=== PATIENT | male | born 1935 | race Caucasian/White ===

== ENCOUNTER → 2024-04-13 10:19 | Outpatient (REF) | payer OTHER, SELFPAY | LOC: RAD 10:19 | PROVIDERS: ATTENDING PHYSICIAN Internal Medicine Hematology & Oncology; FAMILY PHYSICIAN Family Medicine | DX: C61 Malignant neoplasm of prostate (principal); Z85.038 Personal history of other malignant neoplasm of large intestine; D64.81 Anemia due to antineoplastic chemotherapy | CPT/HCPCS: 71260; 74177; 78306; A9503; Q9967 ==

== ENCOUNTER → 2024-10-07 13:08 | Outpatient (REF) | payer OTHER, SELFPAY ==
[2024-10-07 13:48] LABS: % Basophils 0.6 % (0-2); % Eosinophils 0.5 % (0-6); % Lymphocytes 10.8 % (20.5-51.1); % Monocytes 9.8 % (1.7-9.3); % Neutrophils 77.3 % (42.2-75.2); Absolute Basophils 0.1 10^3/uL (0-0.2); Absolute Eosinophils 0.1 10^3/uL (0-0.7); Absolute Immature Granulocytes 0.1 10^3/uL (0-0.05); Absolute Monocytes 0.9 10^3/uL (0.1-0.6); Absolute Neutrophils 7.3 10^3/uL (1.4-6.5); Hematocrit 35.4 % (39.0-52.0); Hemoglobin 11.2 g/dL (13.0-18.0); Mean Corp Hgb Conc. 31.6 g/dL (33.0-37.0); Mean Corpuscular Hgb 28.6 pg (27.0-31.0); Mean Corpuscular Volume 90.3 fL (80.0-94.0); Mean Platelet Volume 8.4 fL (7.4-10.4); Platelet Count 353 10^3/uL (130-400); Red Blood Cell Count 3.92 10^6/uL (4.70-6.10); Red Cell Dist. Width 16.5 % (11.5-14.5); White Blood Cell Count 9.5 10^3/uL (4.8-10.8)
[2024-10-07 15:19] LABS: ALT (SGPT) 30 U/L (0-50); AST (SGOT) 36 U/L (17-59); Albumin 3.3 g/dl (3.5-5.0); Alkaline Phosphatase 85 U/L (38-126); Blood Urea Nitrogen 14 mg/dl (9-20); Calcium 8.6 mg/dl (8.4-10.2); Carbon Dioxide 21 mmol/L (22-30); Chloride 105 mmol/L (98-107); Glucose 104 mg/dl (70-99); Potassium 4.2 mmol/L (3.5-5.1); Sodium 135 mmol/L (135-145); Total Bilirubin 0.3 mg/dl (0.2-1.3); Total Protein 6.3 g/dl (6.3-8.2); eGFR > 60.00
== END ==
LOC: OIDL 13:08
PROVIDERS: ATTENDING PHYSICIAN Internal Medicine Hematology & Oncology; FAMILY PHYSICIAN Family Medicine; REFERRING PHYSICIAN Family Medicine
DX: C61 Malignant neoplasm of prostate (principal); Z85.038 Personal history of other malignant neoplasm of large intestine
CPT/HCPCS: 36415; 80053; 85025

== ENCOUNTER → 2024-10-19 09:18 | Outpatient (REF) | payer OTHER, SELFPAY | LOC: RAD 09:18 | PROVIDERS: ATTENDING PHYSICIAN Internal Medicine Hematology & Oncology; FAMILY PHYSICIAN Family Medicine | DX: C61 Malignant neoplasm of prostate (principal); Z85.038 Personal history of other malignant neoplasm of large intestine; M79.604 Pain in right leg | CPT/HCPCS: 71260; 74177; 78306; A9503; Q9967 ==

== ENCOUNTER → 2025-01-20 09:22 | Outpatient (REF) | payer OTHER, SELFPAY | LOC: RAD 09:22 | PROVIDERS: ATTENDING PHYSICIAN Internal Medicine Hematology & Oncology; FAMILY PHYSICIAN Family Medicine; OTHER PHYSICIAN Nurse Practitioner Primary Care | DX: Z85.038 Personal history of other malignant neoplasm of large intestine (principal); C61 Malignant neoplasm of prostate; D64.81 Anemia due to antineoplastic chemotherapy; M79.604 Pain in right leg | CPT/HCPCS: 71260; 74177; 78306; A9503; Q9967 ==

== ENCOUNTER → 2025-05-18 09:01 | Outpatient (REF) | payer OTHER, SELFPAY | LOC: RAD 09:01 | PROVIDERS: ATTENDING PHYSICIAN Nurse Practitioner Primary Care; FAMILY PHYSICIAN Family Medicine | DX: C61 Malignant neoplasm of prostate (principal); Z85.038 Personal history of other malignant neoplasm of large intestine; D64.81 Anemia due to antineoplastic chemotherapy; M79.604 Pain in right leg | CPT/HCPCS: 71260; 74177; 78306; A9503; Q9967 ==

== ENCOUNTER 2025-08-09 01:27 | Inpatient (IN) | payer OTHER, SELFPAY ==
[2025-08-08 20:10] VITALS: BP 133/58
[2025-08-08] MEDS: TYLENOL 650 MG PO (20:25)
[2025-08-08 20:41] VITALS: BMI 18.2
[2025-08-08 20:41] LABS: COVID-19 Antigen Negative (Negative)
[2025-08-08 22:15] VITALS: BP 104/43
[2025-08-08 22:24] LABS: Hematocrit 24.7 % (39.0-52.0); Hemoglobin 8.3 g/dL (13.0-18.0); Mean Corp Hgb Conc. 33.6 g/dL (33.0-37.0); Mean Corpuscular Volume 87.6 fL (80.0-94.0); Platelet Count 229 10^3/uL (130-400); Red Cell Dist. Width 15.9 % (11.5-14.5)
[2025-08-08 22:32] LABS: ALT (SGPT) 21 U/L (0-50); AST (SGOT) 33 U/L (17-59); Albumin 2.7 g/dl (3.5-5.0); Alkaline Phosphatase 77 U/L (38-126); Blood Urea Nitrogen 19 mg/dl (9-20); Calcium 8.5 mg/dl (8.4-10.2); Carbon Dioxide 24 mmol/L (22-30); Chloride 104 mmol/L (98-107); Estimated Creatinine Clearance 71 ml/min; Glucose 122 mg/dl (70-99); Potassium 4.0 mmol/L (3.5-5.1); Sodium 130 mmol/L (135-145); Total Protein 5.6 g/dl (6.3-8.2); eGFR > 60.00
[2025-08-08 22:40] LABS: Normal RBC Morphology No; Platelets Checked Yes
[2025-08-08 22:41] LABS: Anisocytosis 1+; Macrocytosis 1+
[2025-08-08 22:43] LABS: Hypochromasia 1+
[2025-08-08 22:44] LABS: Basophilic Stippling 1+; Microcytosis 1+
[2025-08-08 22:47] LABS: Absolute Neutrophils -Man Diff 0.7 10^3/uL (1.4-6.5); Polychromasia 1+; Total Cells Counted 100
[2025-08-08 23:00] VITALS: BP 102/42
[2025-08-09] VITALS (7 sets, daily range): BP systolic 95–122; BP diastolic 39–80; BMI 18.0
[2025-08-09] MEDS: ZOSYN 100 IV (00:41)
[2025-08-09] MEDS: TYLENOL 650 MG PO ×2 (00:41→19:46)
[2025-08-09 00:44] LABS: Urine Character Clear (Clear)
[2025-08-09 00:50] LABS: Urine Squamous Cell 0-2 /LPF (Few); Urine White Cell 16-20 /HPF (0-5)
--- NOTE | 2025-08-09 00:50 | HPS.HSE ---
Family Physician
-
Family Physician: NOT KNOW UNKNOWN - PT DOES
Chief Complaint
-
Fever
History of Present Illness
This is a 89-year-old with past medical history significant for colon cancer, metastatic prostate cancer, hypertension who presents to the emergency department with left leg pain and was found to be febrile in the emergency department.
Patient receives docetaxel and Eligard. Last dose of testosterone was 10 days ago. Patient reported that he woke up in usual state of health. He reports chronic right leg weakness. He was able to ambulate with cane and walker throughout the day.
He was also able to seat and stand with assist. However at around 5 PM he reported he sat in his sofa and when he tried to get up he was unable to get up due to weakness in his right leg. He feels the weakness is not entirely. When he is but I
came in to get him up he had severe pain in that leg. He reported that the pain is localized to the thigh. He was sat down again, tried to get up and noticed the weakness again and then called EMS. He denies having any back pain. He denies
having any numbness or tingling. He denies having any urinary symptoms including incontinence, retention, dysuria or frequency. He did report that his urine was dark later on in the daytime. He denies any cough. He denies any shortness of
breath. He denies any headache lightheadedness or dizziness.
Patient reports history of prostate cancer with mets to the bone with prior radiation treatment to the hip.
He had a temp of 101.7 cooperative pressure was 104/40 with a pulse rate of 80 and he was satting 97% on room air. ECG showed sinus tachycardia with 4 degree AV block at a rate of 116.
He still 101.3 ANC less than 700. Hemoglobin was 8.3. Platelets 229. Sodium was 130 the rest of the electrolytes were normal. BUN and creatinine were normal. COVID test was negative. Influenza test was negative. UA is pending at this time.
Chest x-ray shows no acute infiltrates. X-ray of the leg without any fracture.
Medical History
Past Medical History
Past Medical History: Reports Cancer (Metastatic prostate cancer status post TURP 2021, colon cancer status post ileocolectomy in 2019) and HTN
Past Surgical History: Reports Bowel Resection (laparoscopic right colectomy, robotic ileocolectomy with resection of old anastomosis.) and Urological (TURP, )
Social History
Tobacco: Non-smoker
Alcohol: None
Drug: None
Personal: Single
Living: Alone
Family History
Family History: Not pertinent
Allergies / Home Medications
Allergies reflects when Allergies were last updated in [facility].
Home Medications with original date entered in [facility]
Allergy/Medication List:
Allergies
Allergy/AdvReac Type Severity Reaction Status Date / Time
No Known Allergies Allergy Verified 08/08/25 20:15
Home Medications
Xgeva 120 MG/1.7ML as directed Subcutaneous Active
DOCEtaxel 80 MG/8ML as directed Intravenous Active
Eligard 22.5 MG as directed Subcutaneous Active
predniSONE 5 MG 1 tablet Orally Twice a Day Active
Lisinopril 10 MG TAKE 1 TABLET DAILY for 90 Active
Review of Systems
-
Constitutional: Reports No Symptoms
EENT: Reports No Symptoms
Respiratory: Reports No Symptoms
Cardiac: Reports No Symptoms
Abdomen/GI: Reports No Symptoms
: Reports No Symptoms
Musculoskeletal: Reports No Symptoms
Skin: Reports No Symptoms
Neurological: Reports No Symptoms
Endocrine: Reports No Symptoms
Hematologic/Lymphatic: Reports No Symptoms
Psych: Reports No Symptoms
Physical Exam
Vital Signs
Vital Signs
Temp Pulse Resp BP Pulse Ox
99 F 88 18 104/43 97
08/09/25 00:39 08/08/25 22:45 08/08/25 21:45 08/08/25 22:15 08/08/25 22:45
Physical Exam
General: Well Developed, Well Nourished and No Apparent Distress
HEENT: NormoCephalic, Moist mucous membranes and Atraumatic
Respiratory: Clear
Cardiac: S1/S2 and Regular Rhythm; No Murmur or Rub
GI: Soft, Non Tender, Non Distended and Normal Bowel Sounds; No Organomegaly
Rectal: Deferred by Provider
Musculoskeletal: No Clubbing, No Cyanosis and No Edema
Skin: No Rash
Neuro: AO x 3, Cranial Nerves Intact, No Sensory Deficits and Other; No No Motor Deficits (He had weakness with a 3 out of 5 strength on R hip flexion and 2 out of 5 on R knee extension. Plantar strength was 5 out of 5 bilaterally. Reflexes
intact.)
Psych: Calm
Laboratory Results
-
08/08/25 21:53
08/08/25 21:53
Laboratory Results
Lactic Acid 1.3 mmol/L (0.7-2.0) 08/08/25 21:53
Total Bilirubin 0.4 mg/dl (0.2-1.3) 08/08/25 21:53
AST 33 U/L (17-59) 08/08/25 21:53
ALT 21 U/L (0-50) 08/08/25 21:53
Alkaline Phosphatase 77 U/L (38-126) 08/08/25 21:53
Data Reviewed
-
Diagnostic Radiology: Image Personally Visualized and interpreted
Medical Tests (Nuc Med, Echo, EKG etc): Image Personally Visualized and interpreted
Lab Data: Labs Reviewed by me
Old Records: Reviewed
Impression/Plan
-
IMPRESSION:
89-year-old male with past medical history significant for metastatic prostate cancer who presents to the emergency department with left leg pain and was found to be febrile. He has a ANC less than 700 criteria for neutropenic fever. On docetaxel.
The source of the fever is currently undetermined. Chest x-ray is clear. COVID flu is negative. UA still pending. Patient had no urinary symptoms. He is currently hemodynamically stable in no acute distress. However given unknown duration of
neutropenia patient will be admitted and started on empirically on antibiotics for neutropenic fever delineation of source.
PLAN:
Neutropenic fever - UTI as likley source. SIRS w/o sepsis
-Admit to [facility] [place]
-Blood cultures,
-UA positive, urine cultures pending
-IV cefepime 2g q 8 for now pending cultures
- ID consult
HTN - stable
- continue lisinopril with hold parameters
Leg weakness - Acute on chronic. Possibly exacerbated by infection. Mostly muscle weakness to the right proximal leg muscles. No other deficits. No signs of myelopathy or radiculopathy. Cannot rule out further spinal mets.
- leg xray unremarkable
- mri thoraci/lumbar spine
- treat infection as above
- pt consult
- case management
DVT PPX - lovenox sq
Code status - Full code for now, to discuss with family regarding advance directives
[2025-08-09] MEDS: VANCOCIN 530 MG IV (01:21)
--- NOTE | 2025-08-09 01:21 | ED.GENMED ---
History of Present Illness
General
Chief Complaint: Fever
Source: patient
Time Seen by Provider: 08/08/25 22:03
Nursing documentation reviewed up to this point in time: agreed with
History of Present Illness
History of Present Illness:
Note:
CHIEF COMPLAINT(S)
Inability to ambulate due to weakness in the right leg.
HISTORY OF PRESENT ILLNESS
The patient is an 89-year-old male with a history of bone cancer presenting with an acute inability to rise from a seated position due to weakness in the right leg. The patient reports a sudden onset of weakness making it impossible to stand or get
up from the sofa. He has a known history of bone cancer affecting his right leg and underwent radiation therapy on the right hip, though the exact timing of the radiation is unclear. There has been a progressive decline over the past months, with
the patient using a walker for mobility and requiring assistance to navigate stairs and get to the car. He lives alone but has assistance from his brother for transportation to medical appointments. The patient denies any current hip pain and
described intermittent past pain along the front and side of the right hip, especially when bearing weight. He also reports a fever earlier in the hospital but denies any chest pain, shortness of breath, abdominal pain, headache, or neck pain.
PAST MEDICAL AND SURGICAL HISTORY
The patient has a history of bone cancer affecting the right hip and has undergone radiation therapy. He has a powered port in the right chest for medical treatments. 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
youth.
EXTERNAL RECORDS REVIEWED
The patient is under the care of Dr. Gracia at [facility], who is managing his cancer treatment.
PHYSICAL EXAM
General: Alert, no acute distress. He is resting comfortably while lying in bed. He states that he has pain upon standing.
Skin: Warm, dry.
Head: Normocephalic, atraumatic.
Neck: Supple, trachea midline.
Eye, Ears, Nose, Mouth and Throat: Oral mucosa moist. 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
Cardiovascular: Heart regular in rhythm, normal peripheral perfusion, no edema. Port in the right chest
Respiratory: Lungs clear to auscultation, respirations non-labored.
Gastrointestinal: Abdomen nondistended.
Back: Normal range of motion, normal alignment.
Musculoskeletal: Right leg exhibits weakness, no tenderness to palpation.
Neurological: Alert and oriented to person, place, time, and situation, no focal neurological deficit observed.
Psychiatric: Cooperative, appropriate mood and affect.
PLAN
- An X-ray of the right hip to assess for changes potentially related to the patients bone cancer or any additional complications.
- Encouragement for the patient to urinate and collect a urine sample for analysis.
- Consideration of support for the patient as he cannot ambulate independently, involving discussions about discharge planning given his inability to return home alone safely.
DIFFERENTIAL DIAGNOSIS
The Differential Diagnosis includes, in no particular order and is not limited to:
1. Progression of bone cancer impacting the right leg.
2. Radiation-induced muscle weakness or damage.
3. Neurological deficit or injury.
4. Spinal stenosis or nerve impingement.
5. Muscle atrophy due to decreased use or inactivity.
6. Hip fracture or other orthopedic issue.
7. Myopathy related to oncology treatment.
8. Hypokalemia or electrolyte imbalance.
9. Vascular insufficiency in the right leg.
10. Acute infection or abscess in the bone or surrounding tissues.
CARE-UPDATE
08/08/25 - 22:31
WBC count is at 1.3. Hemoglobin remains at baseline of 8.3. Lactic acid is 1.3. Awaiting urine analysis results.
Disposition:
SUMMARY OF ENCOUNTER
The patient is an 89-year-old male presenting with inability to ambulate. He lives alone and was noted to have a fever. Clinically, he is experiencing a neutropenic fever. Management focused on addressing the fever and evaluating any underlying
causes contributing to his inability to move independently.
ASSESSMENT
The patient is presenting with neutropenic fever and inability to ambulate. The fever of unknown origin is of particular concern given his immunocompromised state.
PLAN
- Initiate antibiotic therapy to address the neutropenic fever.
- Evaluate the source of the fever and further assess his mobility issues.
- Consider hospital admission for further observation and management due to his immunocompromised status and living situation.
INDEPENDENT REVIEW OF LABS AND INTERPRETATION OF TESTS
My independent review indicates neutropenic fever, suggesting low white blood cell count consistent with a compromised immune state.
MEDICAL DECISION MAKING
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
Data:
Category 1
Non-emergency department records reviewed.
Category 2
Obtained input from external medical records.
Category 3
Discussion of management with other healthcare providers was considered.
Risk:
Prescription medication was prescribed.
DIAGNOSIS
1. Neutropenic fever - D70.9
2. Inability to ambulate due to generalized weakness - R53.1
Past History
Past History
ED Past Medical History: Cancer (colon, prostate), GERD, HTN and Other (Cataracts, macular degeneration, left eye blindness)
ED Past Surgical History: Bowel resection (colon ca)
Social History
Tobacco: Non-smoker
Alcohol: None
Drug: None
Personal: Single
Living: alone
Phy Exam
Physical Exam
Physical Exam:
.
Sepsis
Sepsis Screening
Sepsis Assessment: Sepsis
Sepsis Screen
Sepsis Screen: Sepsis
Date: 08/09/25
Time: 02:45
Course
Orders/Labs/Results
Orders:
Orders
08/08/25 20:15
Electrocardiogram (*1) Urgent
Reason for Study: Other
Other Reason for Exam: Possible Sepsis
Cardiac Monitoring- Treatment ONCE
IV Insert/Care/Rem.- Treatment PRN
Pulse Ox/cont/shift [RESP] Urgent
Quantity: 1
Special Instructions: CONTINUOUS
08/08/25 20:16
EKG- Treatment ONCE
08/08/25 20:18
COVID-19 Antigen Urgent
Source: Nasal Swab
Influenza A+B Rapid Molecular Urgent
RIVER Source: Nasal Swab
Specimen Description:
08/08/25 20:21
Acetaminophen [Tylenol] 650 mg PO NOW STA
08/08/25 20:22
Acetaminophen [Tylenol] 650 mg .ROUTE .STK-MED ONE
08/08/25 21:53
Complete Blood Count/With Diff Urgent
Comprehensive Metabolic Panel Urgent
Lactic Acid Q4H
Comment: ON ICE, CANCEL 2ND ORDER IF FIRST LACTIC ACID LEVEL <2
Manual Differential Urgent
08/08/25 22:21
Blood Culture Q20M
RIVER Source: Blood/Venous
Specimen Description:
Comment: Urgent from separate sites. If patient screens positive for possible sepsis
Blood Culture Q20M
RIVER Source: Blood/Venous
Specimen Description:
Date Specimen was Collected: 08/08/25
Time Specimen was Collected: 20:16
Comment: Urgent from separate sites. If patient screens positive for possible sepsis
08/08/25 22:31
Acetaminophen [Tylenol] 650 mg PO NOW STA
08/08/25 22:56
Urinalysis Reflex To Culture Urgent
Date Specimen was Collected: 08/08/25
Time Specimen was Collected: 20:16
08/08/25 23:05
Femur, Right 2 View [CR Femur - Right Min 2 Vw] Urgent
Comment:
Reason For Exam: pain, known bone ca
08/08/25 23:29
CR Chest - 2 Views Urgent
Comment:
Reason For Exam: neutropenic fever
08/09/25 00:20
Piperacillin/Tazo 4.5 Gram [Zosyn] 4.5 gram in 100 ml IV NOW
08/09/25 00:35
Urine Microscopic Reflex Cult Urgent
Urine Culture Urgent
RIVER Source: U
Specimen Description:
Date Specimen was Collected: 08/08/25
Time Specimen was Collected: 20:16
08/09/25 00:39
Vancomycin [Vancocin] 1,500 mg 0.9% Sodium Chloride 500 ml [Nss] 500 ml IV NOW
08/09/25 00:40
Acetaminophen [Tylenol] 650 mg .ROUTE .STK-MED ONE
08/09/25 00:58
Admit/Transfer Patient As Directed
Co-Sign Provider:
Level of Care: Inpatient admission
Assign to:: Medical/Surgical
Physician / Group: Toi
Diagnosis: neutropenic fever
Reason for Hospitalization: neutropenic fever
Expected length of stay greater than two midnights?: Yes
ELOS- Estimated Length of Stay in days: 2
I certify the patient meets the requirements for IP care: Yes
PRN Pain Medication Management As Directed
May give lesser potent ordered pain med per pt: Yes
preference::
Protocol:: Medication orders for pain may be administered in a
manner that supports deferring to patient preference
when the pt is:
- Requesting an ordered lesser potent pain medication.
Least to most potent pain medications are defined
as: acetaminophen < NSAID < tramadol < opioids
(morphine, oxycodone, hydromorphone).
- Requesting a lesser dose of the same medication IF
ORDERED.
- Requesting a less intrusive route of administration
if both routes are prescribed by the provider (PO <
IV).
08/09/25 00:59
Code Status As Directed
Resuscitation Status: Full Code
08/09/25 02:27
Acetaminophen [Tylenol] 650 mg PO Q4HPRN PRN
Bisacodyl [Dulcolax] 10 mg RECTAL [id number] PRN
Docusate W/Senna [Senokot-S] 1 tablet PO BIDPRN PRN
Hydrocodone 5/APAP 325 [[place] 5/325] 2 tablet PO Q6H PRN moderate pain moderate pain
Ondansetron Injectable [Zofran] 4 mg IV Q6HPRN PRN
Polyethylene Glycol Powder [Miralax] 17 grams PO DAILYPRN PRN
08/09/25 02:27
Consult Notification Routine
Specialty to Notify: Infectious Disease
INFECTIOUS DISEASE CONSULT Routine
Consulting Provider: Sindi Burgess
Was physician already notified: No
Reason for consult: neutropenic fever
Activity As Directed
Activity Level: With Assistance
Vital Signs As Directed
Frequency: Per unit guidelines
DX Deep Vein Thrombosis Video Routine
08/09/25 Breakfast
Regular
Basic Metabolic Panel IN AM
Complete Blood Count/No Diff IN AM
Cefepime HCl [Maxipime] 2,000 mg IV Q8H
08/09/25 08:00
Lisinopril [Zestril] 10 mg PO DAILY
Prednisone [Deltasone] 5 mg PO BID
08/09/25 18:00
Enoxaparin Sodium [Lovenox] 40 mg SC QPM
Abnormal Lab Results
08/08/25 08/09/25
21:53 00:35
WBC 1.3 L* 10^3/uL
(4.8-10.8)
RBC 2.82 L 10^6/uL
(4.70-6.10)
Hgb 8.3 L g/dL
(13.0-18.0)
Hct 24.7 L %
(39.0-52.0)
RDW 15.9 H %
(11.5-14.5)
Abs Neuts (Manual) 0.7 L* 10^3/uL
(1.4-6.5)
Lymphocytes (Manual) 18 L %
(20-51)
Monocytes (Manual) 20 H %
(2-9)
Sodium 130 L mmol/L
(135-145)
Creatinine 0.6 L mg/dL
(0.7-1.3)
Glucose 122 H mg/dl
(70-99)
Total Protein 5.6 L g/dl
(6.3-8.2)
Albumin 2.7 L g/dl
(3.5-5.0)
Ur Occult Blood Reflex 3+ A
(Negative)
Urine Nitrite (Reflex) Positive A
(Negative)
Leukocyte Esterase Rfl 1+ A
(Negative)
Urine RBC 7-10 A /HPF
(0-2)
Urine WBC (Reflex) 16-20 A /HPF
(0-5)
Urine Bacteria (Reflex) Many A
(Negative)
Urine Albumin (Reflex) 2+ A
(Neg - Trace)
08/08/25 21:53
08/08/25 21:53
Vital Signs
Initial and Last Documented VS:
Initial Vital Signs
Temp Pulse Resp BP Pulse Ox
101.2 F H 120 16 133/58 98
08/08/25 20:10 08/08/25 20:10 08/08/25 20:10 08/08/25 20:10 08/08/25 20:10
Last Documented Vital Signs
Temp Pulse Resp BP Pulse Ox
99 F 80 19 114/42 100
08/09/25 00:39 08/09/25 02:03 08/09/25 02:03 08/09/25 02:03 08/09/25 02:03
*Radiology
Radiology exam reviewed: all reviewed NAD by ED Provider
*Pulse Oximetry
SaO2: 97
Oxygen Mode of Delivery: Room air
Patient hypoxic: no
*Critical Care Note
Total Time (30-74mins, 75-104mins- exclusive of procedures): Not Applicable
ED Attending Note
-
Portions of this chart may have been created with voice recognition software.� Occasional wrong word or��sound alike� substitutions may have occurred due to the inherent limitations of voice recognition software.
Discharge Plan
Departure
Patient Disposition: Admit
Date of Disposition: 08/09/25
Time of Disposition: 01:22
Admit to: Telemetry
Presentation/result/management discussed w/ accepting MD/DO: Hospitalist
Discharge Problem:
Neutropenic fever, Ambulatory dysfunction
Interventions
Interventions:
*Risk Screen - Suicide Last Done: 08/08/25 20:10
*General Assessment Last Done: 08/08/25 20:10
*Neglect/Abuse Screening Last Done: 08/08/25 20:10
*ED- Fall Risk Assessment Last Done: 08/08/25 20:10
*ED COVID-19 Vaccine History Last Done: 08/09/25 01:44
*ED Influenza Vaccine History Last Done: 08/08/25 20:10
*Nursing Disposition Last Done: 08/09/25 02:17
ED- Neurological Assessment Last Done: 08/08/25 21:22
ED-Skin Assessment Last Done: 08/08/25 22:43
Discharge Date and Time
Discharge Date/Time: 08/09/25 02:18
--- NOTE | 2025-08-09 03:37 | PTCARENOTE ---
pt is aaox3. has right SQ port w/ iv abx running through. pt reports pain 4/10 at this time. declined pain med- stated she feels okay. pt reported he has bone cancer in the leg- normally feels it in the upper thigh and gets around w/ a RW. right
pedal weak w/ trace edema. left pedal/ankle +3 pitting edema and weak pedal pulse. pt is able to move leg a little. pt is blind in the left eye. is on static overlay. pt is oriented to room w/ call marx in reach.
[2025-08-09] MEDS: NSS 500 IV (04:50)
[2025-08-09] MEDS: MAXIPIME 2000 MG IV ×3 (05:02→21:31)
[2025-08-09] MEDS: STERILE WATER FOR INJECTION 10 ML IV ×3 (05:03→21:31)
[2025-08-09] MEDS: NORCO 5/325 2 TABLET PO (05:11)
[2025-08-09 07:10] LABS: Blood Urea Nitrogen 18 mg/dl (9-20); Calcium 8.2 mg/dl (8.4-10.2); Carbon Dioxide 22 mmol/L (22-30); Chloride 107 mmol/L (98-107); Estimated Creatinine Clearance 71 ml/min; Glucose 91 mg/dl (70-99); Potassium 4.0 mmol/L (3.5-5.1); Sodium 131 mmol/L (135-145); eGFR > 60.00
[2025-08-09] MEDS: DELTASONE 5 MG PO ×2 (07:51→19:42)
[2025-08-09] MEDS: ZESTRIL PO (07:51)
[2025-08-09 08:06] LABS: Hematocrit 25.3 % (39.0-52.0); Hemoglobin 8.4 g/dL (13.0-18.0); Mean Corp Hgb Conc. 33.2 g/dL (33.0-37.0); Mean Corpuscular Volume 88.8 fL (80.0-94.0); Platelet Count 226 10^3/uL (130-400); Red Cell Dist. Width 15.9 % (11.5-14.5)
--- NOTE | 2025-08-09 09:35 | CON.ID ---
Consultation
-
Date/Time Consultation Requested: 08/09/25 2:27
Date/Time Consultation Performed: 08/09/25 9:36
Requesting Provider: Dr Cm
Performing Provider: Dr Loomis
Reason for Consultation: neutropenic fever
Chief Complaint / Past History
Chief Complaint
fever
History of Present Illness
Mr Cruz is an 89 year old male with history notable for colon cancer, metastatic prostate cancer on docetaxel and eligard who presented here last night for weakness in the left leg with associated pain. He has chronic right leg weakness; at
baseline he can ambulate with a cane and sit and stand with assistance. The around 5 AM he sat on his sofa and when he tried to get up there was too much weakness in the leg. Provider was able to bring his to standing with assistance and notable
pain in the thigh. No back pain, numbness or tingeling. Denies headache, cough, sinus tenderness, shortness of breath, abdominal pain, dysuria, urgency, frequency.
He has knwon mets to the bone and previous radiation treatment of the hip.
On arrival he was febrile to 101.2, bp mildly hypotensive, WBC 1.3 and today 1.4, hgb 8.4, plt 226, na 130, cr 0.6, xray of the femur no acute osseous abnormality identified, metas to the bilateral pelvic bones are known, blood cultures x2 are in
progress a urine culture is in progress, he has thoracic and lumbar MRIs planned
Past History
Additional Past Medical History:
(Metastatic prostate cancer status post TURP 2021, colon cancer status post ileocolectomy in 2019) and HTN
Additional Past Surgical History:
Bowel Resection (laparoscopic right colectomy, robotic ileocolectomy with resection of old anastomosis.) and Urological (TURP, )
Allergy History:
No Known Allergies Allergy (Verified 08/08/25 20:15)
Social History
Tobacco: Non-Smoker
Alcohol: None
Drug: None
Family History
Family History: Not Pertinent
Review of Systems
Review of Systems
General: Fever
EENT: Reports No Symptoms
Respiratory: Reports No Symptoms
Cardiac: Reports No Symptoms
Abdomen/GI: Reports No Symptoms
: Reports No Symptoms
Musculoskeletal: Reports No Symptoms
Skin: Reports No Symptoms
Neurological: Reports No Symptoms
Endocrine: Reports No Symptoms
Hematologic/Lymphatic: Reports No Symptoms
Psych: Reports No Symptoms
Vital Signs
Temp Pulse Resp BP Pulse Ox
98.1 F 91 16 95/39 97
08/09/25 07:00 08/09/25 07:00 08/09/25 07:00 08/09/25 07:51 08/09/25 07:50
Physical Exam
Physical Exam
Constitutional: No Acute Distress
Cardiovascular: Regular Rate and S1/S2; Negative Murmur or Rub
Pulmonary: Clear and Symmetric; Negative Wheezes, Rales or Rhonchi
Gastrointestinal: Soft, Non Tender, Non Distended and Normal Bowel Sounds
Musculoskeletal: Other (right thigh no redness, swelling, tenderness )
Skin: Warm and Dry; Negative Rash or Jaundice
Lab / Diagnostic Study Results
08/09/25 06:32
08/09/25 06:32
Total Counted 100 08/08/25 21:53
Abs Neuts (Manual) 0.7 10^3/uL (1.4-6.5) L* 08/08/25 21:53
Segmented Neutrophils 58 % (42-75) 08/08/25 21:53
Band Neutrophils 0 % (0-3) 08/08/25 21:53
Lymphocytes (Manual) 18 % (20-51) L 08/08/25 21:53
Basophils (Manual) 2 % 08/08/25 21:53
Lactic Acid Cancelled 08/09/25 00:15
Ur Squamous Epith Cells 0-2 /LPF (Few) 08/09/25 00:35
Microbiology Results
Micro:
08/09/25 00:35 Urine Culture - Pending
Urine
08/08/25 22:21 Blood Culture - Pending
Blood/Venous
08/08/25 22:21 Blood Culture - Pending
Blood/Venous
08/08/25 20:18 Influenza Types A & B (SAYDA) - Final
Nasal Swab Negative for Influenza A & B, NAAT
Negative results must be combined with clinical observations
and patient history.
Nucleic Acid Amplification test (NAAT)performed on the
[employer] platform.
Assessment / Plan
Neutropenic Fever
Right thigh pain and weakness
- cefepime
- add vancomycin given possible skin/soft tissue infection
- CT of the right thigh
- will additionally follow up MRIs of lumbar/thoracic spine previously ordered
- oncology consult to assess need for GCSF
[2025-08-09 10:53] LABS: Urine Character Clear (Clear)
--- NOTE | 2025-08-09 10:57 | PHA.VAN.IN ---
Assessment
- Assessment
Renal Function: Appears similar to baseline
Maximum Temperature: 101.2F
Concomitant Antimicrobials: Cefepime
AUC Dosing Plan
- Dosing Variables
Dosing Weight (kg): 75.3- used IBW since BMI 18
Dosing CrCl (ml/min): 71
Vd coefficient (L/kg): 0.7
- Empiric Dosing
Initial / Loading Dose: Vancomycin 1500mg administered 08/09 at 0130
Maintenance Regimen: Vancomycin 750mg IV Q12h to start 08/09 at 1800
Estimated AUC (mcg*h/mL): 464
Estimated Peak (mcg*h/mL): 26.7
Estimated Trough (mcg/ml): 13.3
Estimated Half Life (H): 10.9
- Monitoring
No levels ordered at this time: Consider levels in the next few days.
Pharmacokinetics Vancomycin I
- -
Patient Age: 89
Patient Sex: Male
Vancomycin Day #: 1
Indication: Skin And Soft Tissue
Requesting Provider: Dr. Loomis
Height / Weight:
Height 5 ft 11 in
Actual Weight 58.57 kg
Pertinent Past Medical History: BMI 18, metastatic prostate cancer, colon cancer s/p colectomy '19
- Vital Signs / Lab Results
Temp Pulse Resp BP Pulse Ox
98.1 F 91 16 95/39 97
08/09/25 07:00 08/09/25 07:00 08/09/25 07:00 08/09/25 07:51 08/09/25 07:50
Lab Results - Hematology
08/08/25 08/09/25
21:53 06:32
WBC 1.3 L* 1.4 L*
Band Neutrophils 0
Lab Results - Chemistry
08/08/25 08/09/25
21:53 06:32
BUN 19 18
Creatinine 0.6 L 0.6 L
Estimated Creat Clear 71 71
Albumin 2.7 L
08/08/25 08/09/25
21:53 00:15
Lactic Acid 1.3 Cancelled
Lab Results - Urine
08/09/25
00:35
Urine Nitrite (Reflex) Positive A
Leukocyte Esterase Rfl 1+ A
Urine WBC (Reflex) 16-20 A
Ur Squamous Epith Cells 0-2
Urine Bacteria (Reflex) Many A
Microbiology Results
08/08/25 20:18 Influenza Types A & B (SAYDA) - Final
Nasal Swab Negative for Influenza A & B, NAAT
Negative results must be combined with clinical observations
and patient history.
Nucleic Acid Amplification test (NAAT)performed on the
[employer] NOW platform.
[2025-08-09 11:50] LABS: Urine Squamous Cell 0-2 /LPF (Few)
--- NOTE | 2025-08-09 11:50 | W.PN.UPDATE ---
Update Note
Progress Note Update
Seen and admitted this morning by Dr. Cm for neutropenic fever.
DW ID - planning on to get CT rt leg to rule out infectious process .
CW emp abx
Check urine Na and Osm for eval of hyponatremia.
Follow CBC with diff
Onc consulted
[2025-08-09 11:51] LABS: Urine Red Blood Cell 50-60 /HPF (0-2); Urine White Cell 30-40 /HPF (0-5)
--- NOTE | 2025-08-09 12:51 | CON.ONC ---
Impression
Impression
#Neutropenic fever, likely source of infection UTI/
#Leg weakness
#Hypertension- stable
Plan
Plan
- 89-year-old male with metastatic prostate cancer, on docetaxel and Eligard- last chemo 10 days ago- admitted for neutropenic fever (101.7 F, ANC 700) likely due to UTI given UA showing positive nitrites and 3+ leukocyte esterase.
- Continue IV Cefepime 2g q8h.
- Recommend respiratory panel and panculture as protocol for neutropenic fever.
- ANC 700. Trend CBC to monitor.
- Will consider adding G-CSF to future chemotherapy. No indication of G-CSF at this point in time, however, if ANC falls below 500, can consider while inpatient.
- Patient to follow up with Dr. Kelly at [facility] after discharge.
Patient History
History of Present Illness
Patient is an 89-year-old male with a past medical history of colon cancer, metastatic prostate cancer with prior radiation (Oct 2023) to right hip, and hypertension who presented with left leg pain. Patient states he could not get up from a
sitting position on the sofa due to left thigh pain, which prompted the ED visit. Patient was found to have a fever of 101.7 �, ANC 700 and UTI showing positive nitrates and leukocyte esterase. He denies urinary symptoms, rectal bleeding,
dark/tarry stools or any other complaints. Patient has been getting docetaxel (3 weekly) and Eligard (3 monthly)-last cycle was 10 days ago. He has been on chemotherapy since October 2023. He also gets Xgeva 6 weekly. Patient does not recall
getting G-CSF therapy in the past. He is currently on IV cefepime. Patient's Hgb is usually around 10.
Past-Medical/Surgical History
Metastatic prostate cancer status post TURP 2021
colon cancer status post ileocolectomy in 2019
Patient Medication
�Medication �Instructions �Recorded �Confirmed �Last Taken �Type
lisinopril 10 mg tablet 10 mg PO DAILY Blood pressure 01/30/18 08/09/25 08/08/25 08:00 History
multivitamin with folic acid 400 1 tab PO DAILY Supplement 04/04/22 08/09/25 08/08/25 History
mcg tablet (Tab-A-Elva)
calcium 600 mg (as 1 tab PO BID Supplement 05/30/22 08/09/25 08/08/25 08:00 History
carbonate)-vitamin D3 5 mcg (200
unit) tablet
degarelix 80 mg subcutaneous 80 mg SC QMONTH Cancer 05/30/22 08/09/25 05/07/22 History
solution
vit C 250 mg-vit E 90 mg-zinc 40 1 tab PO BID Supplement 05/30/22 08/09/25 08/08/25 08:00 History
mg-copper 1 [id number]
capsule (PreserVision AREDS-2)
hydrocodone 5 mg-acetaminophen 325 2 tab PO Q6H PRN Pain #20 tabs 09/30/23 08/09/25 08/07/25 Rx
mg tablet
prednisone 5 mg tablet 1 mg PO BID 08/09/25 08/09/25 08/08/25 History
Active Medications
Generic Name Dose Route Start Last Admin
Trade Name Freq PRN Reason Stop Dose Admin
Acetaminophen 650 mg 08/09/25 02:27
Acetaminophen 325 Mg Tablet PO 09/06/25 02:26
Q4HPRN PRN
mild pain/GREGORIO/temp> 100.4F
Hydrocodone Bitart/Acetaminophen 2 tablet 08/09/25 02:27 08/09/25 05:11
Hydrocodone 5 Mg/Acetaminophen 325 Mg Tablet PO 08/23/25 02:26 2 tablet
Q6H PRN Administration
moderate pain
Bisacodyl 10 mg 08/09/25 02:27
Bisacodyl 10 Mg Rectal Suppository RECTAL 09/06/25 02:26
[id number] PRN
constipation
Cefepime HCl 2,000 mg 08/09/25 06:00 08/09/25 05:02
Cefepime Hcl 2,000 Mg/12.5 Ml Vial IV 2,000 mg
Q8H FLAQUITO Administration
Enoxaparin Sodium 40 mg 08/09/25 18:00
Enoxaparin Sodium 40 Mg/0.4 Ml Syringe SC 09/06/25 17:59
QPM FLAQUITO
Sodium Chloride 500 mls @ 10 mls/hr 08/09/25 05:00 08/09/25 04:50
Nss IV 500 mls
.Q24H FLAQUITO Administration
Vancomycin HCl 750 mg in 150 mls @ 150 mls/hr 08/09/25 18:00
Vancocin IV
Q12H FLAQUITO
Protocol
Lisinopril 10 mg 08/09/25 08:00 08/09/25 07:51
Lisinopril 10 Mg Tablet PO 09/06/25 07:59 Not Given
DAILY FLAQUITO
Ondansetron HCl 4 mg 08/09/25 02:27
Ondansetron 4 Mg/2 Ml Vial IV 09/06/25 02:26
Q6HPRN PRN
nausea and vomiting
Polyethylene Glycol 17 grams 08/09/25 02:27
Polyethylene Glycol Powder 17 Grams Packet PO 09/06/25 02:26
DAILYPRN PRN
constipation
Prednisone 5 mg 08/09/25 08:00 08/09/25 07:51
Prednisone 5 Mg Tablet PO 09/06/25 07:59 5 mg
BID FLAQUITO Administration
Senna/Docusate Sodium 1 tablet 08/09/25 02:27
Docusate W/Senna (Prabha-Colace) Tablet PO 09/06/25 02:26
BIDPRN PRN
constipation
Sodium Chloride 0 flush 08/09/25 03:00
Sodium Chloride 0.9% (Flush) Syringe IV 09/06/25 02:59
PER PROTOCOL FLAQUITO
Sterile Water 10 ml 08/09/25 06:00 08/09/25 05:03
Sterile Water For Injection 10 Ml Vial IV 09/06/25 05:59 10 ml
Q8H FLAQUITO Administration
Review of Systems
-
History Source: Patient
All Other Systems: Reviewed and Negative
Constitutional: Reports Fever
EENT: Reports No Symptoms
Respiratory: Reports No Symptoms
Cardiac: Reports No Symptoms
GI: Reports No Symptoms
Breast: Reports No Symptoms
Physical Exam
-
General: Well Developed, No Apparent Distress, Comfortable, Conversant and Cachetic
HEENT: Moist Mucous Membranes
Cardiology: Normal Sinus Rhythm, S1 and S2
Pulmonary: Clear
GI: Soft and Normal Bowel Sounds
Musculoskeletal: No Clubbing, No Cyanosis, Edema, Right Lower Extrem (pitting) and Edema, Left Lower Extrem (pitting)
Skin: Warm
Psych: Calm
Labs
Lab Results
WBC 1.4 10^3/uL (4.8-10.8) L* 08/09/25 06:32
RBC 2.85 10^6/uL (4.70-6.10) L 08/09/25 06:32
Hgb 8.4 g/dL (13.0-18.0) L 08/09/25 06:32
Hct 25.3 % (39.0-52.0) L 08/09/25 06:32
MCV 88.8 fL (80.0-94.0) 08/09/25 06:32
MCH 29.5 pg (27.0-31.0) 08/09/25 06:32
MCHC 33.2 g/dL (33.0-37.0) 08/09/25 06:32
RDW 15.9 % (11.5-14.5) H 08/09/25 06:32
Plt Count 226 10^3/uL (130-400) 08/09/25 06:32
MPV 8.9 fL (7.4-10.4) 08/09/25 06:32
Creatinine 0.6 mg/dL (0.7-1.3) L 08/09/25 06:32
Vital Signs
Vital Signs
Temp Pulse Resp BP Pulse Ox
98.1 F 91 16 95/39 97
08/09/25 07:00 08/09/25 07:00 08/09/25 07:00 08/09/25 07:51 08/09/25 07:50
--- NOTE | 2025-08-09 13:52 | CM ---
CM reviewed chart, patient seen bedside with daughter in [facility], initial assessment completed.
Patient is a 89-year-old with past medical history significant for colon cancer, metastatic prostate cancer, hypertension who presents to the emergency department with left leg pain and was found to be febrile in the emergency department.
Patient resides independently in a multiple story home, four steps to enter with railing.
Patient has stair lift to second floor, cane for in the home, RW for outside.
Patients brother assists with transportation.
Pt denies VN/SNF hx.
Patient confirms PCP Dr Clemente, pharmacy [facility] in [place], confirms prescription coverage.
CM discussed therapy recommendations of SNF- patient would prefer to return home with VN.
CM will continue to follow for all d/c planning needs.
Plan; home with VN likely
[2025-08-09] MEDS: LOVENOX 40 MG SC (19:42)
[2025-08-09] MEDS: VANCOCIN 150 IV (19:42)
[2025-08-10] MEDS: NSS 500 IV (04:58)
[2025-08-10] MEDS: VANCOCIN 150 IV (05:04)
[2025-08-10] MEDS: STERILE WATER FOR INJECTION 10 ML IV ×3 (05:04→22:18)
[2025-08-10] MEDS: MAXIPIME 2000 MG IV ×3 (05:04→22:18)
[2025-08-10 05:21] VITALS: BMI 17.9
[2025-08-10 05:28] LABS: Hematocrit 24.5 % (39.0-52.0); Hemoglobin 8.0 g/dL (13.0-18.0); Mean Corp Hgb Conc. 32.7 g/dL (33.0-37.0); Mean Corpuscular Volume 88.1 fL (80.0-94.0); Platelet Count 227 10^3/uL (130-400); Red Cell Dist. Width 15.9 % (11.5-14.5)
[2025-08-10 05:40] LABS: Blood Urea Nitrogen 18 mg/dl (9-20); Calcium 7.8 mg/dl (8.4-10.2); Carbon Dioxide 22 mmol/L (22-30); Chloride 107 mmol/L (98-107); Estimated Creatinine Clearance 70 ml/min; Glucose 95 mg/dl (70-99); Potassium 4.1 mmol/L (3.5-5.1); Sodium 132 mmol/L (135-145); eGFR > 60.00
[2025-08-10] MEDS: DELTASONE 5 MG PO ×2 (07:52→20:01)
[2025-08-10] MEDS: ZESTRIL 10 MG PO (07:52)
[2025-08-10 08:19] VITALS: BP 113/47
[2025-08-10 08:24] LABS: Absolute Neutrophils -Man Diff 1.7 10^3/uL (1.4-6.5)
[2025-08-10 08:26] LABS: Normal RBC Morphology No; Platelets Checked Yes
[2025-08-10 08:27] LABS: Anisocytosis 1+; Hypochromasia 1+
[2025-08-10 08:28] LABS: Poikilocytosis 1+; Total Cells Counted 100
--- NOTE | 2025-08-10 10:38 | PHA.VAN.FU ---
Vancomycin Assessment / Plan
- Assessment
Renal Function: Stable
WBC's are: Trending Up
Neutropenia: ANC = 1700
In the past 24 hrs, patient has been: Afebrile
Concomitant Antimicrobials: cefepime
- Dosing Plan
Continue: Vanc 750mg Q12H
- Monitoring Plan
No level(s) ordered at this time: consider levels in next few days
- Follow Up
Pharmacy will continue to follow.
Vancomycin Follow UP
- -
Patient Age: 89
Patient Sex: Male
Vancomycin Day #: 2
Indication: Skin And Soft Tissue
Requesting Provider: Dr. Loomis
Pertinent Antimicrobial Allergies:
NKDA
Height / Weight:
Height 5 ft 11 in
Actual Weight 58.202 kg
IBW in k.3
Pertinent Past Medical History: BMI 18, metastatic prostate cancer, colon cancer s/p colectomy '
- Vital Signs / Lab Results
Temp Pulse Resp BP Pulse Ox
98 F 81 16 113/47 97
08/10/25 08:19 08/10/25 08:19 08/10/25 08:19 08/10/25 08:19 08/10/25 08:19
Lab Results - Hematology
08/08/25 08/09/25 08/10/25
21:53 06:32 04:36
WBC 1.3 L* 1.4 L* 3.1 L
Band Neutrophils 0 20 H D
Lab Results - Chemistry
08/08/25 08/09/25 08/10/25
21:53 06:32 04:36
BUN 19 18 18
Creatinine 0.6 L 0.6 L 0.6 L
Estimated Creat Clear 71 71 70
Albumin 2.7 L
08/08/25 08/09/25
21:53 00:15
Lactic Acid 1.3 Cancelled
Lab Results - Urine
08/09/25 08/09/25
00:35 10:40
Urine Nitrite (Reflex) Positive A Positive A
Leukocyte Esterase Rfl 1+ A 3+ A
Ur Squamous Epith Cells 0-2 0-2
Microbiology Results
08/09/25 00:35 Urine Culture - Preliminary
Urine Gram negative bacilli
08/09/25 10:40 Urine Culture - Final
Urine NO GROWTH
08/08/25 22:21 Blood Culture - Preliminary
Blood/Venous No Growth in 24 hours- Final report to follow
08/08/25 22:21 Blood Culture - Preliminary
Blood/Venous No Growth in 24 hours- Final report to follow
08/08/25 20:18 Influenza Types A & B (SAYDA) - Final
Nasal Swab Negative for Influenza A & B, NAAT
Negative results must be combined with clinical observations
and patient history.
Nucleic Acid Amplification test (NAAT)performed on the
[employer] NOW platform.
--- NOTE | 2025-08-10 11:02 | W.PN.ID1 ---
Date of Service
Date of Service: August 10, 2025
Today's Communication
continue cefepime pending ID of the isolate
Assessment / Plan
Neutropenic Fever - resolved
UTI
Right thigh pain and weakness
- cefepime - continue pending isolate ID
- stop vancomycin
- CT of the right thigh no myositis etc
Chief Complaint
-: Fever
Subjective / Review of Systems
afebrile x24 hours
bp stable
neutropenia resolved
had a bowel movement yesterday - imaging suggested stercoral colitis
Vital Signs / Physical Exam
Vital Signs
Vital Signs
Temp Pulse Resp BP Pulse Ox
98 F 81 16 113/47 97
08/10/25 08:19 08/10/25 08:19 08/10/25 08:19 08/10/25 08:19 08/10/25 08:19
Physical Exam
Constitutional: No Acute Distress
Cardiovascular: Regular Rate and S1/S2; Negative Murmur or Rub
Pulmonary: Clear and Symmetric; Negative Wheezes or Rales
Gastrointestinal: Soft, Non Tender, Non Distended and Normal Bowel Sounds
Skin: Warm and Dry; Negative Rash or Jaundice
Objective Data
Lab Data
Lab Results
08/10/25 04:36
08/10/25 04:36
Estimated Creat Clear 70 ml/min 08/10/25 04:36
Lactic Acid Cancelled 08/09/25 00:15
Total Bilirubin 0.4 mg/dl (0.2-1.3) 08/08/25 21:53
AST 33 U/L (17-59) 08/08/25 21:53
ALT 21 U/L (0-50) 08/08/25 21:53
Alkaline Phosphatase 77 U/L (38-126) 08/08/25 21:53
Most recent labs reviewed.
Micro Results:
08/09/25 00:35 Urine Culture - Preliminary
Urine Gram negative bacilli
08/09/25 10:40 Urine Culture - Final
Urine NO GROWTH
08/08/25 22:21 Blood Culture - Preliminary
Blood/Venous No Growth in 24 hours- Final report to follow
08/08/25 22:21 Blood Culture - Preliminary
Blood/Venous No Growth in 24 hours- Final report to follow
08/08/25 20:18 Influenza Types A & B (SAYDA) - Final
Nasal Swab Negative for Influenza A & B, NAAT
Negative results must be combined with clinical observations
and patient history.
Nucleic Acid Amplification test (NAAT)performed on the
[employer] platform.
--- NOTE | 2025-08-10 12:13 | W.PN.HOSP.TC ---
Today's Communication/Plan
-
Continue with antibiotics per ID
MRI of the brain
Neurology consult
Assessment / Plan
Assessment / Plan
IMPRESSION:
89-year-old male with past medical history significant for metastatic prostate cancer who presents to the emergency department with left leg pain and was found to be febrile. He has a ANC less than 700 criteria for neutropenic fever. On docetaxel.
The source of the fever is currently undetermined. Chest x-ray is clear. COVID flu is negative. UA still pending. Patient had no urinary symptoms. He is currently hemodynamically stable in no acute distress. However given unknown duration of
neutropenia patient will be admitted and started on empirically on antibiotics for neutropenic fever delineation of source.
PLAN:
Neutropenic fever - UTI as likely source. SIRS w/o sepsis
- Resolved fever. Normalized neutrophils today.
-Blood cultures,
-UA positive, urine cultures pending
-IV cefepime 2g q 8 for now pending cultures; vancomycin added by ID.
- ID following.
Chronic [id number] H&H from recent. Aim to keep hemoglobin more than 7.
HTN - stable
- continue lisinopril with hold parameters
Right leg weakness -
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 Will check a MRI of the brain to
rule out any central issues. Consult neurology.
- Continue with PT OT treatments
Hyponatremia-clinically euvolemic. Urine lites suggest excessive ADH. Fluid restriction for now and follow. Check TSH and cortisol in a.m.
DVT PPX - lovenox sq
Code status - Full code for now, to discuss with family regarding advance directives
Total time spent on today's encounter was 52 minutes which included time spent in counseling the patient/family regarding diagnosis and treatment plan as listed above, goals of care, and symptom management. Case was discussed with nursing staff,
specialists, and care coordinators/case management. All labs and imaging personally reviewed by me. Remainder the time spent in detailed review of previous records, lab data, imaging, and other medical provider documentation.
Portions of this chart may have been created with voice recognition software. Occasional wrong word or 'sound alike' substitutions may have occurred due to the inherent limitations of voice recognition software.
Anticipated Discharge: > 48 hours
Subjective/Interval History
-
Date of Service: August 10, 2025
He had some dysuria just for 1 day yesterday and now resolved. Nocturia normally at home. Denies any retentive symptoms.
No fevers today. No chills.
Patient brings up to my attention about right leg weakness and right thigh pain when he tries to lift the right leg about the plane of bed.
He says his right leg has been gradually weak for many days now. He was able to walk without much difficulty was using a cane at home and a walker for outpatient mobility. Lately he started to have difficulty lifting the leg up to do stairs and
also lifting the leg up off the bed.
Denies any prior history of CVA/TIA
Denies any weakness of the right arm. No weakness of the left arm or the leg. Denies any neck pain. Denies any sensory symptoms in the limbs. Denies any headache.
Objective Data
-
Labs:
Laboratory Results
08/10/25
04:36
WBC 3.1 L
Hgb 8.0 L
Hct 24.5 L
Plt Count 227
Sodium 132 L
Potassium 4.1
Chloride 107
Carbon Dioxide 22
BUN 18
Creatinine 0.6 L
Glucose 95
Calcium 7.8 L
Vital Signs:
Vital Signs
Temp Pulse Resp BP Pulse Ox
98 F 81 16 113/47 97
08/10/25 08:19 08/10/25 08:19 08/10/25 08:19 08/10/25 08:19 08/10/25 08:19
I&O
08/09/25 08/10/25 08/11/25
06:59 06:59 06:59
Intake Total 100 / 100 720 / 720
Output Total 300 / 300 1800 / 1800 200 / 200
Balance -200 / -200 -1080 / -1080 -200 / -200
Physical Exam
-
General: No Apparent Distress
HEENT: Moist Mucous Membranes
Respiratory: Clear to Auscultation (anteriorly) and Non Labored Respirations; Negative Accessory Resp Muscle Use
Cardiac: Regular Rhythm and S1/S2; Negative Tachycardic
GI: Soft and Nontender
Neuro: AO x 3; Negative No Motor Deficits (RLE Prox 3/5, distally 4/5 ; RUE 5/5; LUE/LLE 5/5), Tremors, Slurred Speech or Facial Droop
Psych: Calm
Data Reviewed
-
Labs: Labs Reviewed by me
[2025-08-10] MEDS: LOVENOX 40 MG SC (13:54)
[2025-08-10 14:58] VITALS: BP 123/53
--- NOTE | 2025-08-10 15:29 | CM ---
CM reviewed chart, patient seen bedside.
Patient reports he is agreeable to SNF- requesting referrals to [facility].
Patient reports he is no longer receiving radiation, is currently receiving chemo, aware likely cannot receive chemo while at SNF.
Patient remains on IV antibiotics.
CM will continue to follow for all d/c planning needs.
Plan; referrals to [facility], will require auth.
--- NOTE | 2025-08-10 15:32 | PN.CDI ---
CDI
- -
CDI:
Physician Documentation Request
Admit Date: 08/09/25 01:27
Dear Doctor Faheem,
Please review the following and provide your response in the progress notes.
Clinical Indicators:
Height: 5'11
Weight: 128 lbs
BMI: 17.9
Other Clinical Notes: Rn Cardiovascular indicates underweight
If possible, please provide an associated diagnosis related to the abnormal BMI, such as:
Underweight
Cachectic
Other (please specify)
Use of terms such as suspected, likely, concern for, or probable (associated with a specific diagnosis that is being evaluated, monitored, or treated as if it exists) are acceptable and can be coded in the inpatient setting, when documented at the
time of discharge.
Thank you,
Baltazar Gray RN
CDI Specialist
Please use your independent medical judgment in providing your response.
--- NOTE | 2025-08-10 17:30 | PTCARENOTE ---
08/10- Patient's MRI results came in showing acute infarcts. Initiated [facility] Nursing Intervention. Current score is 1 for RLE Ataxia. Patient remains AAOX3; +Sensation/Pulses/ROM X4 extremities. Patient able to weight-bear on both feet equally
with assist with a walker. Visual melchor equal/reactive. No facial droop, dysarthria. Notified Physician. Will continue to assess.
--- NOTE | 2025-08-10 17:30 | PTCARENOTE ---
08/10- Patient's MRI results came in showing acute infarcts. Initiated [facility] Nursing Intervention. Current score is 1 for RLE Ataxia. Patient remains AAOX3; +Sensation/Pulses/ROM X4 extremities. Patient able to weight-bear on both feet equally
with assist with a walker. R-eye reactive. 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 No facial droop, dysarthria. Notified Physician. Will continue to assess.
--- NOTE | 2025-08-10 22:19 | CON.NEURO4 ---
Consultation - Neurology 4
-
CONSULTING PHYSICIAN: Koffi Rg MD
REFERRING PHYSICIAN: Josh Mayen MD
DICTATED BY: Koffi Rg MD
DATE/TIME OF REQUEST: 08/10/2025
DATE/TIME OF CONSULTATION: 08/10/2025
Reason for Consultation: Weakness
Assessment and Plan:
The patient is an 89 years old male with a past medical history of metastatic prostate cancer who presented to the emergency room with complaint of right leg weakness, because of which he was unable to get out of his sofa. He denies any speech
difficulty. Patient reports that he has prostate cancer with metastases to the bone with prior radiation treatment to the hip. The patient was febrile when he came to the hospital and there was a concern for UTI and ID consult has been obtained.
On neurologic semination the patient has right lower extremity weakness and has a strength of about 2 out of 5 in the right lower extremity.
. 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
. The MRI of the cervical spine shows moderate spinal cord compression at C5/C6 levels.
. The MRI of the thoracic spine shows a large osseous metastasis in the T12 vertebral body and pedicles.
. The MRI of the lumbar spine shows severe osseous metastatic disease in the L3, L4 and L5 vertebra.
The patient will be on the stroke pathway because of the acute strokes as seen on the MRI of the brain. Would like to start the patient on dual antiplatelet therapy, however given low hemoglobin level of 8, can start patient on aspirin alone and a
statin. Also will get an echocardiogram and a CTA of the head and neck. Also neurosurgical consult can be obtained to assess the moderate spinal cord compression as seen on the MRI of the cervical spine.
I had a detailed discussion with the patient regarding the assessment and the management plan, and the patient verbalized understanding of our discussion.
History of Present Illness:
The patient is an 89 years old male with a past medical history of metastatic prostate cancer who presented to the emergency room with complaint of right leg weakness, because of which he was unable to get out of his sofa. He denies any speech
difficulty. Patient reports that he has prostate cancer with metastases to the bone with prior radiation treatment to the hip. The patient was febrile when he came to the hospital and there was a concern for UTI and ID consult has been obtained.
Past Medical History: Prostate cancer with metastasis to the bone.
Review of Symptoms:
The 10 point review of systems was obtained a aside from as given in the history of present illness above.
Neurologic Examination:
The patient is alert and oriented x 3
The speech is clear
The cranial nerves II to XII are grossly intact
The motor strength is about 2/5 in the right lower extremity while the strength in left lower extremity and bilateral upper extremities is 5/5
The sensations are intact bilaterally
The cerebellar examination does not show limb ataxia
The deep tendon reflexes are 1+/4+ bilaterally with downgoing toes bilaterally
[2025-08-10] MEDS: NORCO 5/325 2 TABLET PO (22:26)
[2025-08-10 23:05] VITALS: BP 112/56
[2025-08-11] MEDS: STERILE WATER FOR INJECTION 10 ML IV (05:42)
[2025-08-11] MEDS: MAXIPIME 2000 MG IV (05:42)
[2025-08-11 06:00] VITALS: BMI 18.3
[2025-08-11 07:00] VITALS: BP 90/49
[2025-08-11] MEDS: DELTASONE 5 MG PO ×2 (07:43→20:56)
[2025-08-11] MEDS: ZESTRIL 10 MG PO (07:44)
[2025-08-11 08:16] LABS: Hematocrit 25.4 % (39.0-52.0); Hemoglobin 8.4 g/dL (13.0-18.0); Mean Corp Hgb Conc. 33.1 g/dL (33.0-37.0); Mean Corpuscular Volume 87.6 fL (80.0-94.0); Platelet Count 222 10^3/uL (130-400); Red Cell Dist. Width 15.9 % (11.5-14.5)
[2025-08-11 08:45] LABS: Blood Urea Nitrogen 16 mg/dl (9-20); Calcium 7.9 mg/dl (8.4-10.2); Carbon Dioxide 24 mmol/L (22-30); Chloride 109 mmol/L (98-107); Estimated Creatinine Clearance 72 ml/min; Glucose 91 mg/dl (70-99); Potassium 4.1 mmol/L (3.5-5.1); Sodium 133 mmol/L (135-145); eGFR > 60.00
[2025-08-11 09:16] LABS: Cortisol, Random 15.9 ug/dl; TSH 2.05 uIU/ml (0.47-4.68)
[2025-08-11 09:59] LABS: HDL Cholesterol 34 mg/dl; LDL Cholesterol, Calculated 68 mg/dl; Very Low Density Lipoprotein 21 mg/dl (0-30)
[2025-08-11 10:17] LABS: Ferritin 377.0 ng/ml (17.9-464.0)
[2025-08-11 10:40] LABS: Glycohemoglobin (HgbA1c) 5.4 % (4.0-5.6)
[2025-08-11 10:54] LABS: Vitamin B12 525 pg/ml (239-931)
--- NOTE | 2025-08-11 11:26 | W.PN.ID1 ---
Date of Service
Date of Service: August 11, 2025
Today's Communication
- start keflex 500 mg PO QID, stop cefepime, to continue for a 7 day total course 08/08-08/14
Assessment / Plan
Neutropenic Fever - resolved
UTI
Right thigh pain and weakness
Stroke
- start keflex 500 mg PO QID, stop cefepime, to continue for a 7 day total course 08/08-08/14
Chief Complaint
-: Fever
Subjective / Review of Systems
afebrile
bp stable
tolerating current antibiotics
Vital Signs / Physical Exam
Vital Signs
Vital Signs
Temp Pulse Resp BP Pulse Ox
98.3 F 90 18 90/49 98
08/11/25 07:00 08/11/25 07:00 08/11/25 07:00 08/11/25 07:00 08/11/25 07:45
Physical Exam
Constitutional: No Acute Distress
Cardiovascular: Regular Rate and S1/S2; Negative Murmur or Rub
Pulmonary: Clear and Symmetric; Negative Wheezes or Rales
Gastrointestinal: Soft, Non Tender, Non Distended and Normal Bowel Sounds
Skin: Warm and Dry; Negative Rash or Jaundice
Objective Data
Lab Data
Lab Results
08/11/25 08:07
08/11/25 08:07
Estimated Creat Clear 72 ml/min 08/11/25 08:07
Lactic Acid Cancelled 08/09/25 00:15
Total Bilirubin 0.4 mg/dl (0.2-1.3) 08/08/25 21:53
AST 33 U/L (17-59) 08/08/25 21:53
ALT 21 U/L (0-50) 08/08/25 21:53
Alkaline Phosphatase 77 U/L (38-126) 08/08/25 21:53
Most recent labs reviewed.
Micro Results:
08/09/25 00:35 Urine Culture - Final
Urine Klebsiella pneumoniae
08/08/25 22:21 Blood Culture - Preliminary
Blood/Venous No Growth in 48 hours- Final report to follow
08/08/25 22:21 Blood Culture - Preliminary
Blood/Venous No Growth in 48 hours- Final report to follow
08/09/25 10:40 Urine Culture - Final
Urine NO GROWTH
08/08/25 20:18 Influenza Types A & B (SAYDA) - Final
Nasal Swab Negative for Influenza A & B, NAAT
Negative results must be combined with clinical observations
and patient history.
Nucleic Acid Amplification test (NAAT)performed on the
[employer] platform.
--- NOTE | 2025-08-11 12:09 | W.PN.ONC2 ---
Today's Communication / Plan
-
ANC 1700, afebrile, trend labs.
Imaging showed stroke, Neurology following.
Patient to follow up with [facility] Dr. Kelly after discharge.
Impression
Impression
#Neutropenic fever - resolved: ANC 1700, afebrile
#Stroke
Plan
Plan
- 89-year-old male with metastatic prostate cancer, on docetaxel and Eligard- last chemo 10 days ago- admitted for neutropenic fever (101.7 F, ANC 700) likely due to UTI given UA showing positive nitrites and 3+ leukocyte esterase.
- Patient is currently afebrile, and ANC 1700.
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 Since patient has history of cancer, stroke is possible due to hypercoagulable state. This is likely not due to chemotherapy as patient has been on treatment for > 1 year.
Neurology following.
- Will consider adding G-CSF to future chemotherapy. No indication of G-CSF at this point in time, however, if ANC falls below 500, can consider while inpatient.
- Patient to follow up with Dr. Kelly at [facility] after discharge.
Subjective/Objective
Subjective
Upon evaluation of patient today, he feels well. Patient expresses he does not have weakness anymore. No new complaints. He has been informed by Neurology regarding MRI showing stroke, which would explain his initial weakness that prompted the
hospital visit.
Vital Signs:
Vital Signs
Temp Pulse Resp BP Pulse Ox
98.3 F 90 18 90/49 98
08/11/25 07:00 08/11/25 07:00 08/11/25 07:00 08/11/25 07:00 08/11/25 07:45
Lab Results:
Laboratory Data
WBC 3.4 10^3/uL (4.8-10.8) L 08/11/25 08:07
Hgb 8.4 g/dL (13.0-18.0) L 08/11/25 08:07
Plt Count 222 10^3/uL (130-400) 08/11/25 08:07
eGFR > 60.00 08/11/25 08:07
Physical Exam
HEENT: Moist Mucous Membranes
Cardiology: Normal Sinus Rhythm, S1 and S2
Pulmonary: Clear
GI: Soft and Normal Bowel Sounds
--- NOTE | 2025-08-11 12:10 | W.PN.HOSP.TC ---
Today's Communication/Plan
-
Transferred to telemetry in view of new stroke
Check an echocardiogram
Consult neurosurgery for cervical spinal cord compression evaluation.
Assessment / Plan
Assessment / Plan
IMPRESSION:
89-year-old male with past medical history significant for metastatic prostate cancer who presents to the emergency department with left leg pain and was found to be febrile. He has a ANC less than 700 criteria for neutropenic fever. On docetaxel.
The source of the fever is currently undetermined. Chest x-ray is clear. COVID flu is negative. UA still pending. Patient had no urinary symptoms. He is currently hemodynamically stable in no acute distress. However given unknown duration of
neutropenia patient will be admitted and started on empirically on antibiotics for neutropenic fever delineation of source.
PLAN:
Neutropenic fever - UTI as likely source. SIRS w/o sepsis
- Resolved fever. Normalized neutrophils.
-Blood cultures neg so far,
-UA positive, urine cultures shows Klebsiella pneumonia
- Antibiotics switched to oral cephalexin.
- ID following.
Chronic [id number] H&H from recent. Aim to keep hemoglobin more than 7.
HTN - stable
- continue lisinopril with hold parameters
Right leg weakness -Acute on chronic
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 Will transfer to telemetry and get an echocardiogram. Aspirin started. Statin started. Hemoglobin A1c 5.4. Blood
pressure under goal. LDL 68.
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
- Continue with PT OT treatments
Metastatic prostate cancer-follows with oncology and on treatments.
Hyponatremia-clinically euvolemic. Urine lites suggest excessive ADH. Fluid restriction for now and follow. Improving. Random a.m. cortisol is okay. TSH normal.
DVT PPX - lovenox sq
Code status - Full code for now, to discuss with family regarding advance directives
Total time spent on today's encounter was 52 minutes which included time spent in counseling the patient/family regarding diagnosis and treatment plan as listed above, goals of care, and symptom management. Case was discussed with nursing staff,
specialists, and care coordinators/case management. All labs and imaging personally reviewed by me. Remainder the time spent in detailed review of previous records, lab data, imaging, and other medical provider documentation.
Portions of this chart may have been created with voice recognition software. Occasional wrong word or 'sound alike' substitutions may have occurred due to the inherent limitations of voice recognition software.
Anticipated Discharge: > 48 hours
Subjective/Interval History
-
Date of Service: August 11, 2025
Continues to have right leg weakness.
No new symptoms.
He again says he has chronic right lower leg weakness. On Saturday after the game when he tried to get out of the couch he had more weakness in the right leg. His right leg was weaker especially when trying to climb the stair or when he gets in and
out of the bed prior to acute changes on Saturday.
Today denies any headache. No vision problem. No speech disturbance. No other limb weakness.
Denies any fever or chills. Good appetite.
Denies any urinary symptoms
Objective Data
-
Labs:
Laboratory Results
08/11/25
08:07
WBC 3.4 L
Hgb 8.4 L
Hct 25.4 L
Plt Count 222
Sodium 133 L
Potassium 4.1
Chloride 109 H
Carbon Dioxide 24
BUN 16
Creatinine 0.6 L
Glucose 91
Calcium 7.9 L
Vital Signs:
Vital Signs
Temp Pulse Resp BP Pulse Ox
98.3 F 90 18 90/49 98
08/11/25 07:00 08/11/25 07:00 08/11/25 07:00 08/11/25 07:00 10/15/25 07:45
I&O
08/10/25 08/11/25 08/12/25
06:59 06:59 06:59
Intake Total 720 / 720
Output Total 1800 / 1800 1125 / 112
Balance -1080 / -1080 -112 / -112
Physical Exam
-
General: No Apparent Distress
HEENT: Moist Mucous Membranes
Respiratory: Non Labored Respirations; Negative Accessory Resp Muscle Use
Cardiac: Regular Rhythm and S1/S2; Negative Tachycardic
GI: Soft
Neuro: AO x 3; Negative No Motor Deficits (Rt leg paresis 12/30 still without much change)
Psych: Calm
Data Reviewed
-
MRI: Report Reviewed by me (MRI brain)
Labs: Labs Reviewed by me
[2025-08-11] MEDS: LOW STRENGTH ASPIRIN 81 MG PO (12:24)
[2025-08-11] MEDS: KEFLEX 500 MG PO ×3 (12:25→21:59)
[2025-08-11 14:05] LABS: Folate 7.1 ng/ml (2.76-20)
[2025-08-11 15:00] VITALS: BP 109/59
[2025-08-11] MEDS: LOVENOX 40 MG SC (16:38)
--- NOTE | 2025-08-11 16:40 | W.PN.NEURO.1 ---
Today's Communication / Plan
-
The patient is an 89 years old male with a past medical history of metastatic prostate cancer who presented to the emergency room with complaint of right leg weakness, because of which he was unable to get out of his sofa. He denies any speech
difficulty.
On neurologic semination the patient has right lower extremity weakness and has a strength of about 2 out of 5 in the right lower extremity.
. 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
. The MRI of the cervical spine shows moderate spinal cord compression at C5/C6 levels.
. The MRI of the thoracic spine shows a large osseous metastasis in the T12 vertebral body and pedicles.
. The MRI of the lumbar spine shows severe osseous metastatic disease in the L3, L4 and L5 vertebra.
The patient will be on the stroke pathway because of the acute strokes as seen on the MRI of the brain. Would like to start the patient on dual antiplatelet therapy, however given low hemoglobin level of 8, can start patient on aspirin alone and a
statin.
Recommend an echocardiogram.
CTA of the head and neck was unremarkable.
A neurosurgical consult to be obtained to assess the moderate spinal cord compression as seen on the MRI of the cervical spine.
I had a detailed discussion with the patient regarding the assessment and the management plan, and the patient verbalized understanding of our discussion.
Will sign off. Please call if you have any question.
Subjective/Objective
Subjective Data
Date of Service: August 11, 2025
The patient is an 89 years old male with a past medical history of metastatic prostate cancer who presented to the emergency room with complaint of right leg weakness, because of which he was unable to get out of his sofa. He denies any speech
difficulty. Patient reports that he has prostate cancer with metastases to the bone with prior radiation treatment to the hip. The patient was febrile when he came to the hospital and there was a concern for UTI and ID consult has been obtained.
On neurologic semination the patient has right lower extremity weakness and has a strength of about 2 out of 5 in the right lower extremity.
. 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
. The MRI of the cervical spine shows moderate spinal cord compression at C5/C6 levels.
. The MRI of the thoracic spine shows a large osseous metastasis in the T12 vertebral body and pedicles.
. The MRI of the lumbar spine shows severe osseous metastatic disease in the L3, L4 and L5 vertebra.
The patient will be on the stroke pathway because of the acute strokes as seen on the MRI of the brain. Would like to start the patient on dual antiplatelet therapy, however given low hemoglobin level of 8, can start patient on aspirin alone and a
statin.
Recommend an echocardiogram.
CTA of the head and neck was unremarkable.
A neurosurgical consult to be obtained to assess the moderate spinal cord compression as seen on the MRI of the cervical spine.
I had a detailed discussion with the patient regarding the assessment and the management plan, and the patient verbalized understanding of our discussion.
Objective Data
Vital Signs
Temp Pulse Resp BP Pulse Ox
36.8 C 90 18 90/49 98
08/11/25 07:00 08/11/25 07:00 08/11/25 07:00 08/11/25 07:00 08/11/25 07:45
Lab Results
08/11/25 08:07
08/11/25 08:07
Sodium 133 mmol/L (135-145) L 08/11/25 08:07
Potassium 4.1 mmol/L (3.5-5.1) 08/11/25 08:07
BUN 16 mg/dl (9-20) 08/11/25 08:07
Glucose 91 mg/dl (70-99) 08/11/25 08:07
Calcium 7.9 mg/dl (8.4-10.2) L 08/11/25 08:07
LDL Cholesterol, Calc 68 mg/dl 08/11/25 08:07
Vitamin B12 525 pg/ml (239-931) 08/11/25 08:07
Patient Allergies
No Known Allergies Allergy (Verified 08/08/25 20:15)
Vital Signs and Labs
-
Vital Signs and Labs:
Vital Signs
Temp Pulse Resp BP Pulse Ox
36.8 C 90 18 90/49 98
08/11/25 07:00 08/11/25 07:00 08/11/25 07:00 08/11/25 07:00 08/11/25 07:45
Lab Results
08/11/25 08:07
08/11/25 08:07
Sodium 133 mmol/L (135-145) L 08/11/25 08:07
Potassium 4.1 mmol/L (3.5-5.1) 08/11/25 08:07
BUN 16 mg/dl (9-20) 08/11/25 08:07
Glucose 91 mg/dl (70-99) 08/11/25 08:07
Calcium 7.9 mg/dl (8.4-10.2) L 08/11/25 08:07
LDL Cholesterol, Calc 68 mg/dl 08/11/25 08:07
Vitamin B12 525 pg/ml (638-949) 08/11/25 08:07
Medications
-
Active Medications
Generic Name Dose Route Start Last Admin
Trade Name Freq PRN Reason Stop Dose Admin
Acetaminophen 650 mg 08/09/25 02:27 08/09/25 19:46
Acetaminophen 325 Mg Tablet PO 09/06/25 02:26 650 mg
Q4HPRN PRN Administration
mild pain/GREGORIO/temp> 100.4F
Hydrocodone Bitart/Acetaminophen 2 tablet 08/09/25 02:27 08/10/25 22:26
Hydrocodone 5 Mg/Acetaminophen 325 Mg Tablet PO 08/23/25 02:26 2 tablet
Q6H PRN Administration
moderate pain
Aspirin 81 mg 08/11/25 09:00 08/11/25 12:24
Aspirin 81 Mg Chewable Tablet PO 09/08/25 08:59 81 mg
DAILY FLAQUITO Administration
Bisacodyl 10 mg 08/09/25 02:27
Bisacodyl 10 Mg Rectal Suppository RECTAL 09/06/25 02:26
[id number] PRN
constipation
Cephalexin HCl 500 mg 08/11/25 13:00 08/11/25 16:38
Cephalexin 500 Mg Capsule PO 500 mg
QID FLAQUITO Administration
Enoxaparin Sodium 40 mg 08/09/25 18:00 08/11/25 16:38
Enoxaparin Sodium 40 Mg/0.4 Ml Syringe SC 09/06/25 17:59 40 mg
QPM FLAQUITO Administration
Lisinopril 10 mg 08/09/25 08:00 08/11/25 07:44
Lisinopril 10 Mg Tablet PO 09/06/25 07:59 10 mg
DAILY FLAQUITO Administration
Ondansetron HCl 4 mg 08/09/25 02:27
Ondansetron 4 Mg/2 Ml Vial IV 09/06/25 02:26
Q6HPRN PRN
nausea and vomiting
Polyethylene Glycol 17 grams 08/09/25 02:27
Polyethylene Glycol Powder 17 Grams Packet PO 09/06/25 02:26
DAILYPRN PRN
constipation
Prednisone 5 mg 08/09/25 08:00 08/11/25 07:43
Prednisone 5 Mg Tablet PO 09/06/25 07:59 5 mg
BID FLAQUITO Administration
Senna/Docusate Sodium 1 tablet 08/09/25 02:27
Docusate W/Senna (Prabha-Colace) Tablet PO 09/06/25 02:26
BIDPRN PRN
constipation
Sodium Chloride 0 flush 08/09/25 03:00
Sodium Chloride 0.9% (Flush) Syringe IV 09/06/25 02:59
PER PROTOCOL FLAQUITO
Home Medications
�Medication �Instructions �Recorded
lisinopril 10 mg tablet 10 mg PO DAILY Blood pressure 01/30/18
multivitamin with folic acid 400 1 tab PO DAILY Supplement 04/04/22
mcg tablet (Tab-A-Elva)
calcium 600 mg (as 1 tab PO BID Supplement 05/30/22
carbonate)-vitamin D3 5 mcg (200
unit) tablet
degarelix 80 mg subcutaneous 80 mg SC QMONTH Cancer 05/30/22
solution
vit C 250 mg-vit E 90 mg-zinc 40 1 tab PO BID Supplement 05/30/22
mg-copper 1 [id number]
capsule (PreserVision AREDS-2)
hydrocodone 5 mg-acetaminophen 325 2 tab PO Q6H PRN Pain #20 tabs 09/30/23
mg tablet
prednisone 5 mg tablet 1 mg PO BID Anti-Inflammatory 08/09/25
[2025-08-11 19:55] VITALS: BP 128/64
[2025-08-11] MEDS: NORCO 5/325 2 TABLET PO (21:57)
[2025-08-11 23:05] VITALS: BP 119/58
[2025-08-12] VITALS (7 sets, daily range): BP systolic 124–142; BP diastolic 58–72; PULSE 58; O2SAT 93; BMI 18.2
[2025-08-12 05:17] LABS: Hematocrit 23.1 % (39.0-52.0); Hemoglobin 7.5 g/dL (13.0-18.0); Mean Corp Hgb Conc. 32.5 g/dL (33.0-37.0); Mean Corpuscular Volume 87.2 fL (80.0-94.0); Platelet Count 248 10^3/uL (130-400); Red Cell Dist. Width 15.9 % (11.5-14.5)
[2025-08-12 05:38] LABS: Nucleated Red Blood Cells % 0 % (-)
[2025-08-12 05:40] LABS: Blood Urea Nitrogen 14 mg/dl (9-20); Calcium 7.3 mg/dl (8.4-10.2); Carbon Dioxide 21 mmol/L (22-30); Chloride 112 mmol/L (98-107); Estimated Creatinine Clearance 72 ml/min; Glucose 91 mg/dl (70-99); Potassium 4.1 mmol/L (3.5-5.1); Sodium 133 mmol/L (135-145); eGFR > 60.00
[2025-08-12] MEDS: KEFLEX 500 MG PO ×4 (08:17→21:29)
[2025-08-12] MEDS: ZESTRIL 10 MG PO (08:17)
[2025-08-12] MEDS: LOW STRENGTH ASPIRIN 81 MG PO (08:17)
[2025-08-12] MEDS: DELTASONE 5 MG PO ×2 (08:17→19:22)
--- NOTE | 2025-08-12 09:37 | W.PN.ONC2 ---
Today's Communication / Plan
-
Trend CBC
Impression
Impression
#Neutropenic fever - resolved: ANC 1700, afebrile
#Stroke
Plan
Plan
- 89-year-old male with metastatic prostate cancer, on docetaxel and Eligard- last chemo 10 days ago- admitted for neutropenic fever (101.7 F, ANC 700) likely due to UTI given UA showing positive nitrites and 3+ leukocyte esterase.
- Patient is currently afebrile, and ANC 1700 08/10/25.
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 Since patient has history of cancer, stroke is possible due to hypercoagulable state. This is likely not due to chemotherapy as patient has been on treatment for > 1 year.
Neurology following.
- Per Neurology note, patient to be put on aspirin and statin at the time of discharge.
- Will consider adding G-CSF to future chemotherapy. No indication of G-CSF at this point in time, however, if ANC falls below 500, can consider while inpatient.
- Patient to follow up with Dr. Kelly at [facility] after discharge.
Subjective/Objective
Subjective
Upon evaluation of patient today, he feels well. No new complaints.
Vital Signs:
Vital Signs
Temp Pulse Resp BP Pulse Ox
98.2 F 88 15 133/72 99
08/12/25 07:00 08/12/25 07:00 08/12/25 07:00 08/12/25 07:00 08/12/25 07:00
Lab Results:
Laboratory Data
WBC 4.0 10^3/uL (4.8-10.8) L 08/12/25 04:47
Hgb 7.5 g/dL (13.0-18.0) L 08/12/25 04:47
Plt Count 248 10^3/uL (130-400) 08/12/25 04:47
eGFR > 60.00 08/12/25 04:47
Physical Exam
HEENT: Moist Mucous Membranes
Cardiology: Normal Sinus Rhythm, S1 and S2
Pulmonary: Clear
GI: Soft and Normal Bowel Sounds
--- NOTE | 2025-08-12 09:38 | W.PN.ID1 ---
Date of Service
Date of Service: August 12, 2025
Today's Communication
- c/w keflex 500 mg PO QID, to continue for a 7 day total course 08/08-08/14
Assessment / Plan
Neutropenic Fever - resolved
UTI
Right thigh pain and weakness
Stroke
- c/w keflex 500 mg PO QID, to continue for a 7 day total course 08/08-08/14
Chief Complaint
-: Fever
Subjective / Review of Systems
afebrile
bp stable
tolerating current therapies
Vital Signs / Physical Exam
Vital Signs
Vital Signs
Temp Pulse Resp BP Pulse Ox
98.2 F 88 15 133/72 99
08/12/25 07:00 08/12/25 07:00 08/12/25 07:00 08/12/25 07:00 08/12/25 07:00
Physical Exam
Constitutional: No Acute Distress
Cardiovascular: Regular Rate and S1/S2; Negative Murmur or Rub
Pulmonary: Clear and Symmetric; Negative Wheezes or Rales
Gastrointestinal: Soft, Non Tender, Non Distended and Normal Bowel Sounds
Skin: Warm and Dry; Negative Rash or Jaundice
Objective Data
Lab Data
Lab Results
08/12/25 04:47
08/12/25 04:47
Estimated Creat Clear 72 ml/min 08/12/25 04:47
Lactic Acid Cancelled 08/09/25 00:15
Total Bilirubin 0.4 mg/dl (0.2-1.3) 08/08/25 21:53
AST 33 U/L (17-59) 08/08/25 21:53
ALT 21 U/L (0-50) 08/08/25 21:53
Alkaline Phosphatase 77 U/L (38-126) 08/08/25 21:53
Most recent labs reviewed.
Micro Results:
08/08/25 22:21 Blood Culture - Preliminary
Blood/Venous No Growth in 72 hours- Final report to follow
08/08/25 22:21 Blood Culture - Preliminary
Blood/Venous No Growth in 72 hours- Final report to follow
08/09/25 00:35 Urine Culture - Final
Urine Klebsiella pneumoniae
08/09/25 10:40 Urine Culture - Final
Urine NO GROWTH
08/08/25 20:18 Influenza Types A & B (SAYDA) - Final
Nasal Swab Negative for Influenza A & B, NAAT
Negative results must be combined with clinical observations
and patient history.
Nucleic Acid Amplification test (NAAT)performed on the
[employer] platform.
--- NOTE | 2025-08-12 11:17 | W.PN.HOSP.TC ---
Today's Communication/Plan
-
continue current medical management and PT/OT
DC planning to SNF
Assessment / Plan
Assessment / Plan
IMPRESSION:
89-year-old male with past medical history significant for metastatic prostate cancer who presents to the emergency department with left leg pain and was found to be febrile. He has a ANC less than 700 criteria for neutropenic fever. On docetaxel.
The source of the fever is currently undetermined. Chest x-ray is clear. COVID flu is negative. UA still pending. Patient had no urinary symptoms. He is currently hemodynamically stable in no acute distress. However given unknown duration of
neutropenia patient will be admitted and started on empirically on antibiotics for neutropenic fever delineation of source.
Assessment:
Neutropenic fever - UTI as likely source. SIRS w/o sepsis
- Resolved fever. Normalized neutrophils.
- Blood cultures neg so far,
- UA positive, urine cultures shows Klebsiella pneumonia
- Antibiotics switched to oral cephalexin per ID through 08/14
Chronic anemia
- normocytic-stable H&H from recent. Aim to keep hemoglobin more than 7.
HTN - stable
- continue lisinopril with hold parameters
Right leg weakness, acute on chronic
Acute CVA
- MRI: 7 mm ACUTE ISCHEMIC INFARCT in the superior cortical martins matter of the left frontal lobe. 3.6 mm ACUTE ISCHEMIC INFARCT in the cortical martins matter of the posterior left parietal lobe.
- continue tele monitoring
- await Echo
- Continue ASA/Statin per Dr. Rg Neurology
- NeuroSx evaluation for Moderate C spine cord compression C5-C6 given chronic RLE weakness
Metastatic prostate cancer
- follows with oncology and on treatments.
Hyponatremia
- clinically euvolemic. Urine lites suggest excessive ADH. Fluid restriction for now and follow. Improving. TSH/Cortisol normal.
DVT ppx: Lovenox
Code: Full
Anticipated Discharge: > 48 hours
Subjective/Interval History
-
Date of Service: August 12, 2025
no new complaints at present
Objective Data
-
Labs:
Laboratory Results
08/12/25
04:47
WBC 4.0 L
Hgb 7.5 L
Hct 23.1 L
Plt Count 248
Sodium 133 L
Potassium 4.1
Chloride 112 H
Carbon Dioxide 21 L
BUN 14
Creatinine 0.5 L
Glucose 91
Calcium 7.3 L
Vital Signs:
Vital Signs
Temp Pulse Resp BP Pulse Ox
98.2 F 88 15 133/72 99
08/12/25 07:00 08/12/25 07:00 08/12/25 07:00 08/12/25 07:00 08/12/25 07:00
I&O
08/11/25 08/12/25 08/13/25
06:59 06:59 06:59
Output Total 1125 / 1125 375 / 375
Balance -1125 / -1125 -375 / -375
Physical Exam
-
General: No Apparent Distress
HEENT: Normocephalic and Atraumatic
Respiratory: Negative Wheezes
Cardiac: Regular Rhythm
GI: Soft
Genito-urinary: No Costovertebral Tender
Neuro: AO x 3 and Other (Right LE 3/5 paresis)
Psych: Calm
Data Reviewed
-
Total Time Spent with Patient (in minutes): 42
Labs: Labs Reviewed by me
--- NOTE | 2025-08-12 12:55 | CM ---
Addendum entered by Emerald Cohen 08/12/25 16:06:
CM reviewed updated therapy notes, now recommending acute rehab. Update to Hospitalist for PMR consult. Update to liaison at [facility].
Addendum entered by Emerald Cohen 08/12/25 15:07:
[facility] able to accept for tomorrow, will require auth:
NPI Kary Plascencia: [id number]
Dr. Dominguez: [id number]
Original Note:
CM reviewed chart, reviewed with Hospitalist, likely d/c next 24 hrs.
Per Mohinder Scott- likely no beds available until Saturday/next week.
Awaiting update from [facility] if they are able to offer bed- will require auth M/C [place] [address]- will need OT orders for SNF auth.
Patient seen bedside, aware of plan for d/c upon SNF- agreeable to [facility].
CM will continue to follow.
Plan; [facility] SNF pending ability to accept, will need auth.
[2025-08-12] MEDS: LOVENOX 40 MG SC (17:14)
[2025-08-12] MEDS: NORCO 5/325 2 TABLET PO (21:32)
[2025-08-13] VITALS (7 sets, daily range): BP systolic 91–127; BP diastolic 49–66; PULSE 88; O2SAT 99
[2025-08-13 04:47] LABS: Hematocrit 23.3 % (39.0-52.0); Hemoglobin 7.6 g/dL (13.0-18.0); Mean Corp Hgb Conc. 32.6 g/dL (33.0-37.0); Mean Corpuscular Volume 87.3 fL (80.0-94.0); Platelet Count 283 10^3/uL (130-400); Red Cell Dist. Width 15.9 % (11.5-14.5)
[2025-08-13 05:15] LABS: Blood Urea Nitrogen 15 mg/dl (9-20); Calcium 8.1 mg/dl (8.4-10.2); Carbon Dioxide 23 mmol/L (22-30); Chloride 109 mmol/L (98-107); Estimated Creatinine Clearance 71 ml/min; Glucose 93 mg/dl (70-99); Potassium 4.5 mmol/L (3.5-5.1); Sodium 133 mmol/L (135-145); eGFR > 60.00
[2025-08-13] MEDS: DELTASONE 5 MG PO ×2 (08:01→19:18)
[2025-08-13] MEDS: KEFLEX 500 MG PO ×4 (08:01→21:27)
[2025-08-13] MEDS: ZESTRIL 10 MG PO (08:01)
[2025-08-13] MEDS: LOW STRENGTH ASPIRIN 81 MG PO (08:01)
--- NOTE | 2025-08-13 08:09 | W.PN.HOSP.TC ---
Today's Communication/Plan
-
medically stable for dc pending PMR eval and possible acute rehab placement
Assessment / Plan
Assessment / Plan
IMPRESSION:
89-year-old male with past medical history significant for metastatic prostate cancer who presents to the emergency department with left leg pain and was found to be febrile. He has a ANC less than 700 criteria for neutropenic fever. On docetaxel.
The source of the fever is currently undetermined. Chest x-ray is clear. COVID flu is negative. UA still pending. Patient had no urinary symptoms. He is currently hemodynamically stable in no acute distress. However given unknown duration of
neutropenia patient will be admitted and started on empirically on antibiotics for neutropenic fever delineation of source.
Assessment:
Neutropenic fever - UTI as likely source. SIRS w/o sepsis
- Resolved fever. Normalized neutrophils.
- Blood cultures neg so far
- UA positive, urine cultures shows Klebsiella pneumonia
- Antibiotics switched to oral cephalexin per ID through 08/14
Chronic anemia
- normocytic-stable H&H from recent. Aim to keep hemoglobin more than 7.
HTN - stable
- continue lisinopril with hold parameters
Right leg weakness, acute on chronic
Acute CVA
- MRI: 7 mm ACUTE ISCHEMIC INFARCT in the superior cortical martins matter of the left frontal lobe. 3.6 mm ACUTE ISCHEMIC INFARCT in the cortical martins matter of the posterior left parietal lobe.
- continue tele monitoring
- Echo: Normal left ventricular size, wall thickness and systolic function. No regional wall motion abnormalities are seen. Ejection fraction is 56% by Stark's method of discs. Right ventricular size and systolic function are within normal limits.
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 Mild tricuspid regurgitation. Estimated pulmonary artery pressure of 21 mmHg assuming a right atrial pressure of 3 mmHg. Compared to a prior transthoracic echocardiogram study from 02/16/2016 no significant changes
are seen.
- continue ASA/Statin per Dr. Rg Neurology
- NeuroSx remotely evaluated MRI findings and stated no role for intervention for Moderate C spine cord compression C5-C6 (patient with chronic RLE weakness)
- PT/OT - acute rehab recommended. PMR eval and placement pending.
Metastatic prostate cancer
- follows with oncology and on treatments.
Hyponatremia
- clinically euvolemic. Urine lytes suggest excessive ADH. Fluid restriction for now and follow. Improving. TSH/Cortisol normal.
Underweight
DVT ppx: Lovenox
Code: Full
Anticipated Discharge: > 48 hours
Subjective/Interval History
-
Date of Service: August 13, 2025
resting comfortably, no complaints at present
Objective Data
-
Labs:
Laboratory Results
08/13/25
04:23
WBC 6.6
Hgb 7.6 L
Hct 23.3 L
Plt Count 283
Sodium 133 L
Potassium 4.5
Chloride 109 H
Carbon Dioxide 23
BUN 15
Creatinine 0.6 L
Glucose 93
Calcium 8.1 L
Vital Signs:
Vital Signs
Temp Pulse Resp BP Pulse Ox
97.5 F 81 12 114/55 99
08/13/25 07:00 08/13/25 07:00 08/13/25 07:00 08/13/25 07:00 08/13/25 07:00
I&O
08/12/25 08/13/25 08/14/25
06:59 06:59 06:59
Intake Total 240 / 240
Output Total 375 / 375 900 / 900
Balance -375 / -375 -660 / -660
Physical Exam
-
General: No Apparent Distress
HEENT: Normocephalic and Atraumatic
Respiratory: Negative Wheezes
Cardiac: Regular Rhythm and S1/S2
GI: Soft and Nontender
Musculoskeletal: No Edema
Neuro: AO x 3 and Other (Right LE 3/5 paresis)
Psych: Calm
Data Reviewed
-
Total Time Spent with Patient (in minutes): 41
Labs: Labs Reviewed by me
--- NOTE | 2025-08-13 09:07 | PN.CDI ---
CDI
- -
CDI:
Physician Documentation Request
Admit Date: 08/09/25 01:27
Dear Doctor Candido,
Please review the following and provide your response in the progress notes.
Clinical Indicators:
Height: 5'11
Weight: 130 lbs
BMI: 18.2
Other Clinical Notes: D[employer] Husband[employer] indicates underweight - 30lb weight loss in past year
If possible, please provide an associated diagnosis related to the abnormal BMI, such as:
Underweight
Cachectic
Other (please specify)
Use of terms such as suspected, likely, concern for, or probable (associated with a specific diagnosis that is being evaluated, monitored, or treated as if it exists) are acceptable and can be coded in the inpatient setting, when documented at the
time of discharge.
Thank you,
Baltazar Gray RN
CDI Specialist
Please use your independent medical judgment in providing your response.
--- NOTE | 2025-08-13 11:01 | W.PN.ID1 ---
Date of Service
Date of Service: August 13, 2025
Today's Communication
c/w keflex 500 mg PO QID, to continue for a 7 day total course 08/08-08/14, tomorrow final day of antibiotics
Assessment / Plan
Neutropenic Fever - resolved
UTI
Right thigh pain and weakness
Stroke
- c/w keflex 500 mg PO QID, to continue for a 7 day total course 08/08-08/14, tomorrow final day of antibiotics
Chief Complaint
-: Fever
Subjective / Review of Systems
afebrile
bp stable
no complaints
Vital Signs / Physical Exam
Vital Signs
Vital Signs
Temp Pulse Resp BP Pulse Ox
97.5 F 81 12 114/55 99
08/13/25 07:00 08/13/25 07:00 08/13/25 07:00 08/13/25 07:00 08/13/25 07:00
Physical Exam
Constitutional: No Acute Distress
Cardiovascular: Regular Rate and S1/S2; Negative Murmur or Rub
Pulmonary: Clear and Symmetric; Negative Wheezes or Rales
Gastrointestinal: Soft, Non Tender, Non Distended and Normal Bowel Sounds
Skin: Warm and Dry; Negative Rash or Jaundice
Objective Data
Lab Data
Lab Results
08/13/25 04:23
08/13/25 04:23
Estimated Creat Clear 71 ml/min 08/13/25 04:23
Lactic Acid Cancelled 08/09/25 00:15
Total Bilirubin 0.4 mg/dl (0.2-1.3) 08/08/25 21:53
AST 33 U/L (17-59) 08/08/25 21:53
ALT 21 U/L (0-50) 08/08/25 21:53
Alkaline Phosphatase 77 U/L (38-126) 08/08/25 21:53
Most recent labs reviewed.
Micro Results:
08/08/25 22:21 Blood Culture - Preliminary
Blood/Venous No Growth in 4 days- Final report to follow
08/08/25 22:21 Blood Culture - Preliminary
Blood/Venous No Growth in 4 days- Final report to follow
08/09/25 00:35 Urine Culture - Final
Urine Klebsiella pneumoniae
08/09/25 10:40 Urine Culture - Final
Urine NO GROWTH
08/08/25 20:18 Influenza Types A & B ([facility]) - Final
Nasal Swab Negative for Influenza A & B, NAAT
Negative results must be combined with clinical observations
and patient history.
Nucleic Acid Amplification test (NAAT)performed on the
[employer] platform.
--- NOTE | 2025-08-13 13:35 | CON.MD ---
Documented by User: Ronel Lynn PA-C 08/13/25 17:47
Consultation - Medical
-
Referring Provider:�Mary De Los Santos
Chief Complaint:�CVA with RLE weakness
�
History of Present Illness:�Patient is an 89 years old male with PMH of (colon cancer, metastatic prostate cancer on docetaxel and Eligard- last chemo 10 days ago, HTN) who presented to the emergency room on 08/08/2025 with right leg weakness and
was unable to get up from his sofa. He denies any speech difficulty. He was admitted for neutropenia, fever (101.7 F, ANC 700) likely due to UTI given UA showing positive nitrites and 3+ leukocyte esterase. MRI showed acute ischemic left frontal
and left parietal lobe infarct possibly due to hypercoagulable state due to his history of cancer. CTA of the head and neck - unremarkable. COVID and Influenza test were negative. Chest x-ray shows no acute infiltrates. X-ray of the leg without
any fracture.
Seen by neurology with recommendation of dual antiplatelet therapy, however given low hemoglobin level of 8 was started on aspirin alone and a statin. Recommended an echo and neurosurgical consult to assess moderate spinal cord compression seen
cervical spine MRI.
Echo: Normal left ventricular size, wall thickness and systolic function. No regional wall motion abnormalities are seen. Ejection fraction is 56%
Neurosurgery remotely evaluated MRI findings and stated no role for intervention for Moderate Cervical spine cord compression C5-C6 (patient with chronic RLE weakness)
.
MRI of the cervical spine shows moderate spinal cord compression at C5/C6 levels.
MRI of the thoracic spine shows a large osseous metastasis in the T12 vertebral body and pedicles.
MRI of the lumbar spine shows severe osseous metastatic disease in the L3, L4 and L5 vertebra.
Seen by hematology with assessment that this is likely not due to chemotherapy as patient has been on treatment for > 1 year. Will consider adding G-CSF to future chemotherapy. No indication of G-CSF at this point in time, however, if ANC falls
below 500, can consider while inpatient.Patient to follow up with Dr. Kelly at [facility] after discharge.
Being followed by Infectious disease for neutropenia.fever possible due to UTI- empirically treated with cefepime switched to Keflex 500 mg p.o. 4 times daily for 7-days from 08/08 - 08/14.
Patient seen at bedside. Reported feeling better. Not complaining of any chest pain, shortness of breath, dizziness, lightheadedness, nausea, vomiting, fever, chills, dysuria. States that earlier on he had some burning with urination but not
anymore. He reports right lower extremity pain and weakness since his radiation to the hip from cancer. He also reported an old injury to his left ankle that causes some swelling in his left foot.
Past Medical History:�colon cancer, metastatic prostate cancer, HTN,
Procedure History:� colon cancer status post ileocolectomy with resection of old anastomosis in 2019, TURP 2021,
Family History:�\\Parents live up to 98, sister�diabetes, brother�diabetes at 90
Social History:�
Functional Level Premorbidly:�Independent with all activities�. Ambulates with single-point cane in the house and walker for outside. Has trouble getting down 4 steps unless his brother is with him
Functional Level Currently:�Bed mobility�min assist�supervision, transfer�min assist, ambulated 22 feet x 2 with rolling walker and min assist x 1 with decreased step length, martine, narrow SHARIFA, right leg ataxia, grooming�supervision, toileting,
lower extremity self-care�min assist,
�
�
Tobacco:�Denies�
Alcohol:�Denies�
Drug use:�Denies�
�
Lives with:�Alone
24-hour assistance available:�No
Number of floors:�2
# steps to enter:�4
# steps to second floor: Stair lift to second floor for bedroom/bathroom
Potential First floor set up:�No
Driving:�yes
Occupation:�Retired
�
�
Allergies:�
Allergy/AdvReac Type Severity Reaction Status Date / Time
No Known Allergies Allergy Verified 08/08/25 20:15
�
Review of Systems:�
Constitutional: (x) Normal _
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
Ear/Nose/Throat: (x) Normal _
Respiratory: (x) Normal _
Cardiovascular: (x) Normal _
Gastrointestinal: (x) Normal _
Genitourinary: (x) abNormal _UTI
Musculoskeletal: (x) abNormal _right leg weakness
Integumentary: (x) Normal _
Neurologic: (x) abNormal _stroke
Psychiatric: (x) Normal _
Endocrine: (x) Normal _
Hematologic/Lymphatic: (x) abNormal _prostate cancer with mets
Allergic/Immunologic: (x) Normal _
�
Medications:�
Active Current Visit Medication List
Category Date Time Status
Acetaminophen [Tylenol] Med 08/09/25 02:27 Active
650 mg PO Q4HPRN PRN
Aspirin Chewable [Low Strength Aspirin] Med 08/11/25 09:00 Active
81 mg PO DAILY
Bisacodyl [Dulcolax] Med 08/09/25 02:27 Active
10 mg RECTAL [id number] PRN
Cephalexin Monohydrate [Keflex] Med 08/11/25 13:00 Active
500 mg PO QID
Docusate W/Senna [Senokot-S] Med 08/09/25 02:27 Active
1 tablet PO BIDPRN PRN
Enoxaparin Sodium [Lovenox] Med 08/09/25 18:00 Active
40 mg SC QPM
Flush (0.9% Sodium Chloride) [Flush (Nss)] Med 08/09/25 03:00 Active
See Dose Instructions IV PER PROTOCOL
Heparin Pf [Heparin Lock Flush] Med 08/12/25 05:15 Active
500 unit IV PER PROTOCOL
Hydrocodone 5/APAP 325 [[place] 5/325] Med 08/09/25 02:27 Active
2 tablet PO Q6H PRN moderate pain moderate pain
Lisinopril [Zestril] Med 08/09/25 08:00 Active
10 mg PO DAILY
Ondansetron Injectable [Zofran] Med 08/09/25 02:27 Active
4 mg IV Q6HPRN PRN
Polyethylene Glycol Powder [Miralax] Med 08/09/25 02:27 Active
17 grams PO DAILYPRN PRN
Prednisone [Deltasone] Med 08/09/25 08:00 Active
5 mg PO BID
�
Vitals:�
�
Temp Pulse Resp BP Pulse Ox
97.6 F 98 20 91/55 100
08/13/25 11:00 08/13/25 11:00 08/13/25 11:00 08/13/25 11:00 08/13/25 11:00
Height 5 ft 11 in
Actual Weight 59.08 kg
Body Mass Index (BMI) 18.2
am:�
General Appearance/Observation: Well-developed, well-nourished individual in no apparent distress.�
Pain/Comfort Assessment: Denies�
Mood/Affect: Appropriate, pleasant�
Integumentary/Operative Site:�
�� Pressure Ulcer Evaluation: absent over heels.�
��
�� Other Type of Wound: absent�
��
�
Eyes: Conjunctiva/Lids: normal���� Pupils: right pupils round and reactive to light and Accommodation�, left eye-hazy, blind
Ears/Nose/Throat: oral mucosa moist,� throat clear.������������ Lips/Teeth/Gums: normal�
Neck: No muscle spasm or tenderness�
Cardiovascular: Heart: regular, no murmur�
Pulses: dorsalis pedis 2+ bilaterally�
Respiratory: Respiratory Effort/Chest Expansion: normal������� Auscultation: Clear to auscultation bilaterally�
Gastrointestinal: abdomen not tender, no distension, normal abdominal bowel sounds
Genitourinary: No Bey�
Extremities:�Edema: None�Cyanosis: None�Trophic�changes: None
�
Neurology Exam:
Orientation: Alert, Oriented to self, Time, Place�
Memory: Intact for immediate medical concerns
Comprehension: Intact
Two step command: Intact
Naming: Intact
Calculation: intact-able to subtract 3 from 20 down to 0
Cranial Nerves:
�� CNII:�Pupillary light reflex: Intact����Visual Field: blind left eye
�� CN III, IV, : Extraocular muscles: Intact�
�� CN V:�Facial Sensation�at�Forehead: Intact,�Maxilla: Intact,�Mandible: Intact
�� CN VII:�Facial movement: Symmetric
�� CN VIII:�Hearing: Normal
�� CN IX/X:�Speech & swallow: Normal,�Position of Uvula: Midline
�� CN XI:�Shoulder shrug: Symmetric
�� CN XII:�Tongue protrusion: Midline
Sensory:
�� Light touch: Intact in bilateral upper and lower extremities
��
�
Reflexes:
�� Biceps: Absent bilaterally
�� Brachioradialis: Absent bilaterally
�� Triceps: Absent bilaterally
�� Patellar: 2+ bilaterally
�� Achilles: Absent bilaterally
�� Babinski: Down going bilaterally
�� Clonus: None
�� Allison: Negative bilaterally�
Cerebellar: Dysmetria/Ataxia: Slight impairment with [id number] coordination on the right
Musculoskeletal:
Motor: (Manual muscle scale 0-5)�
Muscle SA EF WE EE FF FA HF KE DF EHL PF
Right� 5 5 5 5 5 5 2+ 3+ 4 5 4
Left 5 5 5 5 5 5 5 5 5 5 5
�
Tone: Normal in all extremities�
Range of Motion: Passively within normal limits in all extremities�
�
Lab Results:
Labs
WBC 6.6 10^3/uL (4.8-10.8) 08/13/25 04:23
RBC 2.67 10^6/uL (4.70-6.10) L 08/13/25 04:23
Hgb 7.6 g/dL (13.0-18.0) L 08/13/25 04:23
Hct 23.3 % (39.0-52.0) L 08/13/25 04:23
MCV 87.3 fL (80.0-94.0) 08/13/25 04:23
MCH 28.5 pg (27.0-31.0) 08/13/25 04:23
MCHC 32.6 g/dL (33.0-37.0) L 08/13/25 04:23
RDW 15.9 % (11.5-14.5) H 08/13/25 04:23
Plt Count 283 10^3/uL (130-400) 08/13/25 04:23
Plt Count Comment Yes 08/10/25 04:36
MPV 8.8 fL (7.4-10.4) 08/13/25 04:23
Abs Immat Gran (auto) 0.2 10^3/uL (0-0.05) H 08/12/25 04:47
Absolute Neuts (auto) 2.3 10^3/uL (1.4-6.5) 08/12/25 04:47
Absolute Lymphs (auto) 0.6 10^3/uL (1.2-3.4) L 08/12/25 04:47
Absolute Monos (auto) 0.8 10^3/uL (0.1-0.6) H 08/12/25 04:47
Absolute Eos (auto) 0.0 10^3/uL (0-0.7) 08/12/25 04:47
Absolute Basos (auto) 0.0 10^3/uL (0-0.2) 08/12/25 04:47
Total Counted 100 08/10/25 04:36
Immature Gran % 5.8 % (0-0.5) H 08/12/25 04:47
Neutrophils % 57.8 % (42.2-75.2) 08/12/25 04:47
Lymphocytes % 14.9 % (20.5-51.1) L 08/12/25 04:47
Monocytes % 19.9 % (1.7-9.3) H 08/12/25 04:47
Eosinophils % 0.8 % (0-6) 08/12/25 04:47
Basophils % 0.8 % (0-2) 08/12/25 04:47
Nucleated RBC % 0 % (-) 08/12/25 04:47
Abs Neuts (Manual) 1.7 10^3/uL (1.4-6.5) 08/10/25 04:36
Segmented Neutrophils 35 % (42-75) L 08/10/25 04:36
Band Neutrophils 20 % (0-3) H D 08/10/25 04:36
Lymphocytes (Manual) 19 % (20-51) L 08/10/25 04:36
Monocytes (Manual) 21 % (2-9) H 08/10/25 04:36
Eosinophils (Manual) 4 % (0-6) 08/10/25 04:36
Basophils (Manual) 1 % 08/10/25 04:36
Myelocytes 2 % (-) 08/08/25 21:53
Normal RBC Morphology No 08/10/25 04:36
Polychromasia 1+ 08/08/25 21:53
Hypochromasia 1+ 08/10/25 04:36
Poikilocytosis 1+ 08/10/25 04:36
Basophilic Stippling 1+ 08/08/25 21:53
Anisocytosis 1+ 08/10/25 04:36
Microcytosis 1+ 08/08/25 21:53
Macrocytosis 1+ 08/08/25 21:53
Sodium 133 mmol/L (135-145) L 08/13/25 04:23
Potassium 4.5 mmol/L (3.5-5.1) 08/13/25 04:23
Chloride 109 mmol/L (98-107) H 08/13/25 04:23
Carbon Dioxide 23 mmol/L (22-30) 08/13/25 04:23
BUN 15 mg/dl (9-20) 08/13/25 04:23
Creatinine 0.6 mg/dL (0.7-1.3) L 08/13/25 04:23
Estimated Creat Clear 71 ml/min 08/13/25 04:23
eGFR > 60.00 08/13/25 04:23
Glucose 93 mg/dl (70-99) 08/13/25 04:23
Hemoglobin A1c 5.4 % (4.0-5.6) 08/11/25 08:07
Lactic Acid Cancelled 08/09/25 00:15
Calcium 8.1 mg/dl (8.4-10.2) L 08/13/25 04:23
Ferritin 377.0 ng/ml (17.9-464.0) 08/11/25 08:07
Total Bilirubin 0.4 mg/dl (0.2-1.3) 08/08/25 21:53
AST 33 U/L (17-59) 08/08/25 21:53
ALT 21 U/L (0-50) 08/08/25 21:53
Alkaline Phosphatase 77 U/L (38-126) 08/08/25 21:53
Total Protein 5.6 g/dl (6.3-8.2) L 08/08/25 21:53
Albumin 2.7 g/dl (3.5-5.0) L 08/08/25 21:53
Triglycerides 109 mg/dl (10-149) 08/11/25 08:07
Total Cholesterol 123 mg/dl (50-199) 08/11/25 08:07
LDL Cholesterol, Calc 68 mg/dl 08/11/25 08:07
VLDL Cholesterol, Calc 21 mg/dl (0-30) 08/11/25 08:07
HDL Cholesterol 34 mg/dl 08/11/25 08:07
Vitamin B12 525 pg/ml (239-931) 08/11/25 08:07
Folate 7.1 ng/ml (2.76-20) 08/11/25 08:07
TSH 2.05 uIU/ml (0.47-4.68) 08/11/25 08:07
TSH (Reflex) Cancelled 08/11/25 08:07
Random Cortisol 15.9 ug/dl 08/11/25 08:07
Urine Color Yellow 08/09/25 10:40
Urine Clarity Clear (Clear) 08/09/25 10:40
Urine pH 7.0 (5.0-9.0) 08/09/25 10:40
Ur Specific [place] 1.005 (<1.030) 08/09/25 10:40
Urine Ketones Negative (Negative) 08/09/25 10:40
Ur Occult Blood Reflex 4+ (Negative) A 08/09/25 10:40
Urine Nitrite (Reflex) Positive (Negative) A 08/09/25 10:40
Urine Bilirubin Negative (Negative) 08/09/25 10:40
Urine Urobilinogen Negative (Neg - 1+) 08/09/25 10:40
Leukocyte Esterase Rfl 3+ (Negative) A 08/09/25 10:40
Urine RBC 50-60 /HPF (0-2) A 08/09/25 10:40
Urine WBC (Reflex) 30-40 /HPF (0-5) A 08/09/25 10:40
Ur Squamous Epith Cells 0-2 /LPF (Few) 08/09/25 10:40
Urine Bacteria (Reflex) Few (Negative) A 08/09/25 10:40
Urine Osmolality 621 mOsm/kg (300-900) 08/09/25 10:40
Urine Sodium 119 mmol/L (30-90) H 08/09/25 10:40
Urine Glucose Negative (Negative) 08/09/25 10:40
Urine Albumin (Reflex) 2+ (Neg - Trace) A 08/09/25 10:40
SARS-CoV-2 Antigen Negative (Negative) 08/08/25 20:18
�
Diagnostic Results:�as per HPI�
�Echo: Normal left ventricular size, wall thickness and systolic function. No regional wall motion abnormalities are seen. Ejection fraction is 56% by Stark's method of discs. Right ventricular size and systolic function are within normal limits.
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 Mild tricuspid regurgitation. Estimated pulmonary artery pressure of 21 mmHg assuming a right atrial pressure of 3 mmHg. Compared to a prior transthoracic echocardiogram study from 02/16/2016 no significant changes
are seen.
Brain MRI�08/10/2025
There is a 7 mm gyriform shaped acute ischemic infarct in the cortical martins matter of the superior left frontal lobe. There is a 3.6 mm round acute ischemic infarct in the cortical martins matter of the posterior left parietal lobe. Both of the tiny
acute ischemic infarcts demonstrate restricted diffusion.
There are 2 tiny sub-3 mm chronic ischemic infarcts in the periventricular white matter of the right frontal lobe. There is a moderate amount of low T1 and high T2/FLAIR signal intensity white matter leukoaraiosis in the periventricular and
subcortical white matter of the frontal and parietal lobes.
There are multiple small chronic ischemic infarcts in both cerebellar hemispheres (4 on the right and 4 on the left) measuring up to 7 mm in size. 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 The major arterial vascular
flow voids at the base of the brain are present.
There is mild diffuse symmetric cerebral and cerebellar volume loss. There is no midline shift or herniation. There is no evidence for acute or chronic intracranial hemorrhage. There are no extra-axial fluid collections.
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 There is a lens replacement in the right globe. There is moderate mucosal thickening in the inferior right maxillary sinus antrum and complex high T1 and intermediate T2 signal
intensity mucous retention cysts in the right maxillary sinus measuring up to 1.6 cm in size. There is a 1.0 cm complex mucous retention cyst in the posterior left ethmoid air cells. There is mild mucosal thickening throughout the anterior ethmoid
air cells. There is mild mucosal thickening in the left sphenoid sinus. There is minimal fluid in the right mastoid air cells. The left mastoid air cells are clear.
There is a moderate kyphosis at C5/C6. There is mild anterolisthesis of C3 on C4. There is severe left-sided facet joint arthrosis at C3/C4. There is severe left-sided facet joint arthrosis at C2/C3 and C3/C4. There is severe discogenic degenerative
disease at C4/C5 and C5/C6. A central disc-osteophyte complex at C5/C6 causes moderate spinal cord compression.
IMPRESSION:
1. 7 mm ACUTE ISCHEMIC INFARCT in the superior cortical martins matter of the left frontal lobe.
2. 3.6 mm ACUTE ISCHEMIC INFARCT in the cortical martins matter of the posterior left parietal lobe.
3. Multiple small chronic ischemic infarcts in the cerebellar hemispheres.
4. Moderate white matter leukoaraiosis in the frontal and parietal lobes.
5. Tiny chronic ischemic infarcts in the white matter of the right frontal lobe.
6. Mild diffuse cerebral and cerebellar volume loss.
7. Moderate mucosal disease in the right maxillary sinus.
8. Severe discogenic degenerative disease and facet joint arthrosis in the cervical spine.
9. 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
CTA�neck/head�08/11/2025
No CTA evidence for high-grade stenosis or occlusion of the [place] or the arterial vasculature of the neck.
Assessment: 89-year-old male with history of cancer status post radiation presented with right lower extremity weakness found to have left parietal and occipital lobe infarct associated with ADL and ambulatory dysfunction.
�
Plan�
PM&R�PT/OT to increase independence with ADLs, improve balance, coordination, endurance, strength, mobility, community reintegration, decreased burden of care on others and family education.�
�
CVA: Infarct in left frontal and parietal lobe, multiple small chronic ischemic infarcts in the cerebellar hemispheres. per neuro- aspirin and statin, and blood pressure control (SBP less than 180 and diastolic less than 100 to participate with
therapy for ischemic stroke). Continue to monitor neurologic status.�
right dominant hemiparesis: High risk for falls and sliding out of chair/bed. Safety reinforced.�
- Avoid using affected arm to help lift or pull patient as this will cause trauma to the shoulder.
HTN: continue medications, monitor closely�
HLD: Statin�
Coronary artery disease�: Aspirin, statin, beta-merlene�
Anemia: Hemoglobin 7.6 from 7.5 from 8.4�monitor likely multifactorial.� Continue to monitor.�
Hyponatremia: clinically euvolemic. Urine lytes suggest excessive ADH. Fluid restriction for now and follow. Improving. TSH/Cortisol normal.
Neutropenia/fever: Possibly from UTI. Resolved. Empirically treated with Cefepime changed to Keflex 500 4 times daily x 7 days until 08/14. Culture�no growth as of 08/13.
Underweight: Recommend dietary consult, supplements
Hypocalcemia: 8.1 from 7.3
Psych: Psychology consult.� Monitor mood, adjust medications as needed.�
Skin: monitor for pressure sores/rashes/lesions.�
Pain: acetaminophen as needed.�
Bowel: Colace and Senna, PRN bisacodyl.�
Bladder: Time void, PVRs, PRN straight cath.�
Metastatic prostate cancer:follows with oncology and on treatments.
GI Prophylaxis: may benefit from Pantoprazole�
DVT Prophylaxis: Mechanical and Lovenox
Pulmonary: Incentive spirometry�
Safety: Continue to reinforce assistance with all transfers.�
Code Status:� Full code�
Dispo�(date/plan/equipment needs): Home with family care.� Social history reviewed.�
�
Functional and Medical Goals:�Modified Independent with ADL�s, ambulation, transfers�
�
�
Discharge Destination:�Patient would benefit from acute inpatient rehabilitation for CVA associated with right-sided weakness, ADL and ambulatory dysfunction.
�
Thank you for allowing me to care for your patient. Please contact me with any questions or concerns.

Documented by User: Navi Spangler MD 08/13/25 21:57
Consultation - Medical
-
Referring Provider:�Mary De Los Santos
Chief Complaint:�CVA with RLE weakness
�
History of Present Illness:�Patient is an 89 years old male with PMH of (colon cancer, metastatic prostate cancer on docetaxel and Eligard- last chemo 10 days ago, HTN) who presented to the emergency room on 08/08/2025 with right leg weakness and
was unable to get up from his sofa. He denies any speech difficulty. He was admitted for neutropenia, fever (101.7 F, ANC 700) likely due to UTI given UA showing positive nitrites and 3+ leukocyte esterase. MRI showed acute ischemic left frontal
and left parietal lobe infarct possibly due to hypercoagulable state due to his history of cancer. CTA of the head and neck - unremarkable. COVID and Influenza test were negative. Chest x-ray shows no acute infiltrates. X-ray of the leg without
any fracture.
Seen by neurology with recommendation of dual antiplatelet therapy, however given low hemoglobin level of 8 was started on aspirin alone and a statin. Recommended an echo and neurosurgical consult to assess moderate spinal cord compression seen
cervical spine MRI.
Echo: Normal left ventricular size, wall thickness and systolic function. No regional wall motion abnormalities are seen. Ejection fraction is 56%
Neurosurgery remotely evaluated MRI findings and stated no role for intervention for Moderate Cervical spine cord compression C5-C6 (patient with chronic RLE weakness)
.
MRI of the cervical spine shows moderate spinal cord compression at C5/C6 levels.
MRI of the thoracic spine shows a large osseous metastasis in the T12 vertebral body and pedicles.
MRI of the lumbar spine shows severe osseous metastatic disease in the L3, L4 and L5 vertebra.
Seen by hematology with assessment that this is likely not due to chemotherapy as patient has been on treatment for > 1 year. Will consider adding G-CSF to future chemotherapy. No indication of G-CSF at this point in time, however, if ANC falls
below 500, can consider while inpatient.Patient to follow up with Dr. Kelly at [facility] after discharge.
Being followed by Infectious disease for neutropenia.fever possible due to UTI- empirically treated with cefepime switched to Keflex 500 mg p.o. 4 times daily for 7-days from 08/08 - 08/14.
Patient seen at bedside. Reported feeling better. Not complaining of any chest pain, shortness of breath, dizziness, lightheadedness, nausea, vomiting, fever, chills, dysuria. States that earlier on he had some burning with urination but not
anymore. He reports right lower extremity pain and weakness since his radiation to the hip from cancer. He also reported an old injury to his left ankle that causes some swelling in his left foot.
Past Medical History:�colon cancer, metastatic prostate cancer, HTN,
Procedure History:� colon cancer status post ileocolectomy with resection of old anastomosis in 2019, TURP 2021,
Family History:�\\Parents live up to 98, sister�diabetes, brother�diabetes at 90
Social History:�
Functional Level Premorbidly:�Independent with all activities�. Ambulates with single-point cane in the house and walker for outside. Has trouble getting down 4 steps unless his brother is with him
Functional Level Currently:�Bed mobility�min assist�supervision, transfer�min assist, ambulated 22 feet x 2 with rolling walker and min assist x 1 with decreased step length, martine, narrow SHARIFA, right leg ataxia, grooming�supervision, toileting,
lower extremity self-care�min assist,
�
�
Tobacco:�Denies�
Alcohol:�Denies�
Drug use:�Denies�
�
Lives with:�Alone
24-hour assistance available:�No
Number of floors:�2
# steps to enter:�4
# steps to second floor: Stair lift to second floor for bedroom/bathroom
Potential First floor set up:�No
Driving:�yes
Occupation:�Retired
�
�
Allergies:�
Allergy/AdvReac Type Severity Reaction Status Date / Time
No Known Allergies Allergy Verified 08/08/25 20:15
�
Review of Systems:�
Constitutional: (x) abNormal _tired
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
Ear/Nose/Throat: (x) Normal _
Respiratory: (x) Normal _
Cardiovascular: (x) Normal _
Gastrointestinal: (x) Normal _
Genitourinary: (x) abNormal _UTI
Musculoskeletal: (x) abNormal _right leg weakness
Integumentary: (x) Normal _
Neurologic: (x) abNormal _stroke
Psychiatric: (x) Normal _
Endocrine: (x) Normal _
Hematologic/Lymphatic: (x) abNormal _prostate cancer with mets
Allergic/Immunologic: (x) Normal _
�
Medications:�
Active Current Visit Medication List
Category Date Time Status
Acetaminophen [Tylenol] Med 08/09/25 02:27 Active
650 mg PO Q4HPRN PRN
Aspirin Chewable [Low Strength Aspirin] Med 08/11/25 09:00 Active
81 mg PO DAILY
Bisacodyl [Dulcolax] Med 08/09/25 02:27 Active
10 mg RECTAL [id number] PRN
Cephalexin Monohydrate [Keflex] Med 08/11/25 13:00 Active
500 mg PO QID
Docusate W/Senna [Senokot-S] Med 08/09/25 02:27 Active
1 tablet PO BIDPRN PRN
Enoxaparin Sodium [Lovenox] Med 08/09/25 18:00 Active
40 mg SC QPM
Flush (0.9% Sodium Chloride) [Flush (Nss)] Med 08/09/25 03:00 Active
See Dose Instructions IV PER PROTOCOL
Heparin Pf [Heparin Lock Flush] Med 08/12/25 05:15 Active
500 unit IV PER PROTOCOL
Hydrocodone 5/APAP 325 [[place] 5/325] Med 08/09/25 02:27 Active
2 tablet PO Q6H PRN moderate pain moderate pain
Lisinopril [Zestril] Med 08/09/25 08:00 Active
10 mg PO DAILY
Ondansetron Injectable [Zofran] Med 08/09/25 02:27 Active
4 mg IV Q6HPRN PRN
Polyethylene Glycol Powder [Miralax] Med 08/09/25 02:27 Active
17 grams PO DAILYPRN PRN
Prednisone [Deltasone] Med 08/09/25 08:00 Active
5 mg PO BID
�
Vitals:�
�
Temp Pulse Resp BP Pulse Ox
97.6 F 98 20 91/55 100
08/13/25 11:00 08/13/25 11:00 08/13/25 11:00 08/13/25 11:00 08/13/25 11:00
Height 5 ft 11 in
Actual Weight 59.08 kg
Body Mass Index (BMI) 18.2
am:�
General Appearance/Observation: Well-developed, well-nourished male in no apparent distress.�
Pain/Comfort Assessment: Denies�
Mood/Affect: Appropriate, pleasant�
Integumentary/Operative Site:�
�� Pressure Ulcer Evaluation: absent over heels.�
�
Eyes: Conjunctiva/Lids: normal���� Pupils: right pupils round and reactive to light and Accommodation�, left eye-hazy, blind
Ears/Nose/Throat: oral mucosa moist,� throat clear.������������ Lips/Teeth/Gums: normal�
Neck: No muscle spasm or tenderness�
Cardiovascular: Heart: regular, no murmur�
Pulses: dorsalis pedis 2+ bilaterally�
Respiratory: Respiratory Effort/Chest Expansion: normal������� Auscultation: Clear to auscultation bilaterally�
Gastrointestinal: abdomen not tender, no distension, normal abdominal bowel sounds
Genitourinary: No Bey�
Extremities:�Edema: None�Cyanosis: None�Trophic�changes: None
Neurology Exam:
Orientation: Alert, Oriented to self, Time, Place�
Memory: Intact for immediate medical concerns
Comprehension: Intact
Two step command: Intact
Naming: Intact
Calculation: intact-able to subtract 3 from 20 down to 0
Cranial Nerves:
�� CNII:�Pupillary light reflex: Intact����Visual Field: blind left eye
�� CN III, IV, : Extraocular muscles: Intact�
�� CN V:�Facial Sensation�at�Forehead: Intact,�Maxilla: Intact,�Mandible: Intact
�� CN VII:�Facial movement: Symmetric
�� CN VIII:�Hearing: Normal
�� CN IX/X:�Speech & swallow: Normal,�Position of Uvula: Midline
�� CN XI:�Shoulder shrug: Symmetric
�� CN XII:�Tongue protrusion: Midline
Sensory:
�� Light touch: Intact in bilateral upper and lower extremities
��
�
Reflexes:
�� Biceps: Absent bilaterally
�� Brachioradialis: Absent bilaterally
�� Triceps: Absent bilaterally
�� Patellar: 2+ bilaterally
�� Achilles: Absent bilaterally
�� Babinski: Down going bilaterally
�� Clonus: None
�� Allison: Negative bilaterally�
Cerebellar: Dysmetria/Ataxia: Slight impairment with peqgwq-gm-hsmj coordination on the right
Musculoskeletal: Motor: (Manual muscle scale 0-5)�
Muscle SA EF WE EE FF FA HF KE DF EHL PF
Right� 5 5 5 5 5 5 2+ 3+ 4 5 4
Left 5 5 5 5 5 5 5 5 5 5 5
�
Tone: Normal in all extremities�
Range of Motion: Passively within normal limits in all extremities�
�
Lab Results:
Labs
WBC 6.6 10^3/uL (4.8-10.8) 08/13/25 04:23
RBC 2.67 10^6/uL (4.70-6.10) L 08/13/25 04:23
Hgb 7.6 g/dL (13.0-18.0) L 08/13/25 04:23
Hct 23.3 % (39.0-52.0) L 08/13/25 04:23
MCV 87.3 fL (80.0-94.0) 08/13/25 04:23
MCH 28.5 pg (27.0-31.0) 08/13/25 04:23
MCHC 32.6 g/dL (33.0-37.0) L 08/13/25 04:23
RDW 15.9 % (11.5-14.5) H 08/13/25 04:23
Plt Count 283 10^3/uL (130-400) 08/13/25 04:23
Plt Count Comment Yes 08/10/25 04:36
MPV 8.8 fL (7.4-10.4) 08/13/25 04:23
Abs Immat Gran (auto) 0.2 10^3/uL (0-0.05) H 08/12/25 04:47
Absolute Neuts (auto) 2.3 10^3/uL (1.4-6.5) 08/12/25 04:47
Absolute Lymphs (auto) 0.6 10^3/uL (1.2-3.4) L 08/12/25 04:47
Absolute Monos (auto) 0.8 10^3/uL (0.1-0.6) H 08/12/25 04:47
Absolute Eos (auto) 0.0 10^3/uL (0-0.7) 08/12/25 04:47
Absolute Basos (auto) 0.0 10^3/uL (0-0.2) 08/12/25 04:47
Total Counted 100 08/10/25 04:36
Immature Gran % 5.8 % (0-0.5) H 08/12/25 04:47
Neutrophils % 57.8 % (42.2-75.2) 08/12/25 04:47
Lymphocytes % 14.9 % (20.5-51.1) L 08/12/25 04:47
Monocytes % 19.9 % (1.7-9.3) H 08/12/25 04:47
Eosinophils % 0.8 % (0-6) 08/12/25 04:47
Basophils % 0.8 % (0-2) 08/12/25 04:47
Nucleated RBC % 0 % (-) 08/12/25 04:47
Abs Neuts (Manual) 1.7 10^3/uL (1.4-6.5) 08/10/25 04:36
Segmented Neutrophils 35 % (42-75) L 08/10/25 04:36
Band Neutrophils 20 % (0-3) H D 08/10/25 04:36
Lymphocytes (Manual) 19 % (20-51) L 08/10/25 04:36
Monocytes (Manual) 21 % (2-9) H 08/10/25 04:36
Eosinophils (Manual) 4 % (0-6) 08/10/25 04:36
Basophils (Manual) 1 % 08/10/25 04:36
Myelocytes 2 % (-) 08/08/25 21:53
Normal RBC Morphology No 08/10/25 04:36
Polychromasia 1+ 08/08/25 21:53
Hypochromasia 1+ 08/10/25 04:36
Poikilocytosis 1+ 08/10/25 04:36
Basophilic Stippling 1+ 08/08/25 21:53
Anisocytosis 1+ 08/10/25 04:36
Microcytosis 1+ 08/08/25 21:53
Macrocytosis 1+ 08/08/25 21:53
Sodium 133 mmol/L (135-145) L 08/13/25 04:23
Potassium 4.5 mmol/L (3.5-5.1) 08/13/25 04:23
Chloride 109 mmol/L (98-107) H 08/13/25 04:23
Carbon Dioxide 23 mmol/L (22-30) 08/13/25 04:23
BUN 15 mg/dl (9-20) 08/13/25 04:23
Creatinine 0.6 mg/dL (0.7-1.3) L 08/13/25 04:23
Estimated Creat Clear 71 ml/min 08/13/25 04:23
eGFR > 60.00 08/13/25 04:23
Glucose 93 mg/dl (70-99) 08/13/25 04:23
Hemoglobin A1c 5.4 % (4.0-5.6) 08/11/25 08:07
Lactic Acid Cancelled 08/09/25 00:15
Calcium 8.1 mg/dl (8.4-10.2) L 08/13/25 04:23
Ferritin 377.0 ng/ml (17.9-464.0) 08/11/25 08:07
Total Bilirubin 0.4 mg/dl (0.2-1.3) 08/08/25 21:53
AST 33 U/L (17-59) 08/08/25 21:53
ALT 21 U/L (0-50) 08/08/25 21:53
Alkaline Phosphatase 77 U/L (38-126) 08/08/25 21:53
Total Protein 5.6 g/dl (6.3-8.2) L 08/08/25 21:53
Albumin 2.7 g/dl (3.5-5.0) L 08/08/25 21:53
Triglycerides 109 mg/dl (10-149) 08/11/25 08:07
Total Cholesterol 123 mg/dl (50-199) 08/11/25 08:07
LDL Cholesterol, Calc 68 mg/dl 08/11/25 08:07
VLDL Cholesterol, Calc 21 mg/dl (0-30) 08/11/25 08:07
HDL Cholesterol 34 mg/dl 08/11/25 08:07
Vitamin B12 525 pg/ml (239-931) 08/11/25 08:07
Folate 7.1 ng/ml (2.76-20) 08/11/25 08:07
TSH 2.05 uIU/ml (0.47-4.68) 08/11/25 08:07
TSH (Reflex) Cancelled 08/11/25 08:07
Random Cortisol 15.9 ug/dl 08/11/25 08:07
Urine Color Yellow 08/09/25 10:40
Urine Clarity Clear (Clear) 08/09/25 10:40
Urine pH 7.0 (5.0-9.0) 08/09/25 10:40
Ur Specific [place] 1.005 (<1.030) 08/09/25 10:40
Urine Ketones Negative (Negative) 08/09/25 10:40
Ur Occult Blood Reflex 4+ (Negative) A 08/09/25 10:40
Urine Nitrite (Reflex) Positive (Negative) A 08/09/25 10:40
Urine Bilirubin Negative (Negative) 08/09/25 10:40
Urine Urobilinogen Negative (Neg - 1+) 08/09/25 10:40
Leukocyte Esterase Rfl 3+ (Negative) A 08/09/25 10:40
Urine RBC 50-60 /HPF (0-2) A 08/09/25 10:40
Urine WBC (Reflex) 30-40 /HPF (0-5) A 08/09/25 10:40
Ur Squamous Epith Cells 0-2 /LPF (Few) 08/09/25 10:40
Urine Bacteria (Reflex) Few (Negative) A 08/09/25 10:40
Urine Osmolality 621 mOsm/kg (300-900) 08/09/25 10:40
Urine Sodium 119 mmol/L (30-90) H 08/09/25 10:40
Urine Glucose Negative (Negative) 08/09/25 10:40
Urine Albumin (Reflex) 2+ (Neg - Trace) A 08/09/25 10:40
SARS-CoV-2 Antigen Negative (Negative) 08/08/25 20:18
�
Diagnostic Results:�as per HPI�
�Echo: Normal left ventricular size, wall thickness and systolic function. No regional wall motion abnormalities are seen. Ejection fraction is 56% by Stark's method of discs. Right ventricular size and systolic function are within normal limits.
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 Mild tricuspid regurgitation. Estimated pulmonary artery pressure of 21 mmHg assuming a right atrial pressure of 3 mmHg. Compared to a prior transthoracic echocardiogram study from 02/16/2016 no significant changes
are seen.
Brain MRI�08/10/2025
There is a 7 mm gyriform shaped acute ischemic infarct in the cortical martins matter of the superior left frontal lobe. There is a 3.6 mm round acute ischemic infarct in the cortical martins matter of the posterior left parietal lobe. Both of the tiny
acute ischemic infarcts demonstrate restricted diffusion.
There are 2 tiny sub-3 mm chronic ischemic infarcts in the periventricular white matter of the right frontal lobe. There is a moderate amount of low T1 and high T2/FLAIR signal intensity white matter leukoaraiosis in the periventricular and
subcortical white matter of the frontal and parietal lobes.
There are multiple small chronic ischemic infarcts in both cerebellar hemispheres (4 on the right and 4 on the left) measuring up to 7 mm in size. 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 The major arterial vascular
flow voids at the base of the brain are present.
There is mild diffuse symmetric cerebral and cerebellar volume loss. There is no midline shift or herniation. There is no evidence for acute or chronic intracranial hemorrhage. There are no extra-axial fluid collections.
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 There is a lens replacement in the right globe. There is moderate mucosal thickening in the inferior right maxillary sinus antrum and complex high T1 and intermediate T2 signal
intensity mucous retention cysts in the right maxillary sinus measuring up to 1.6 cm in size. There is a 1.0 cm complex mucous retention cyst in the posterior left ethmoid air cells. There is mild mucosal thickening throughout the anterior ethmoid
air cells. There is mild mucosal thickening in the left sphenoid sinus. There is minimal fluid in the right mastoid air cells. The left mastoid air cells are clear.
There is a moderate kyphosis at C5/C6. There is mild anterolisthesis of C3 on C4. There is severe left-sided facet joint arthrosis at C3/C4. There is severe left-sided facet joint arthrosis at C2/C3 and C3/C4. There is severe discogenic degenerative
disease at C4/C5 and C5/C6. A central disc-osteophyte complex at C5/C6 causes moderate spinal cord compression.
IMPRESSION:
1. 7 mm ACUTE ISCHEMIC INFARCT in the superior cortical martins matter of the left frontal lobe.
2. 3.6 mm ACUTE ISCHEMIC INFARCT in the cortical martins matter of the posterior left parietal lobe.
3. Multiple small chronic ischemic infarcts in the cerebellar hemispheres.
4. Moderate white matter leukoaraiosis in the frontal and parietal lobes.
5. Tiny chronic ischemic infarcts in the white matter of the right frontal lobe.
6. Mild diffuse cerebral and cerebellar volume loss.
7. Moderate mucosal disease in the right maxillary sinus.
8. Severe discogenic degenerative disease and facet joint arthrosis in the cervical spine.
9. 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
CTA�neck/head�08/11/2025
No CTA evidence for high-grade stenosis or occlusion of the [place] or the arterial vasculature of the neck.
Assessment:
89-year-old male with history of cancer status post radiation presented with right lower extremity weakness found to have left parietal and occipital lobe infarct associated with ADL and ambulatory dysfunction.
�
Plan�
PM&R�PT/OT to increase independence with ADLs, improve balance, coordination, endurance, strength, mobility, community reintegration, decreased burden of care on others and family education.�
�
CVA: Infarct in left frontal and parietal lobe, multiple small chronic ischemic infarcts in the cerebellar hemispheres. per neuro- aspirin and statin, and blood pressure control (SBP less than 180 and diastolic less than 100 to participate with
therapy for ischemic stroke). Continue to monitor neurologic status.�
right dominant hemiparesis: High risk for falls and sliding out of chair/bed. Safety reinforced.�
- Avoid using affected arm to help lift or pull patient as this will cause trauma to the shoulder.
HTN: continue medications, monitor closely�
HLD: Statin�
Coronary artery disease�: Aspirin, statin, beta-merlene�
Anemia: Hemoglobin 7.6 from 7.5 from 8.4�monitor likely multifactorial.� Continue to monitor.�
Hyponatremia: clinically euvolemic. Urine lytes suggest excessive ADH. Fluid restriction for now and follow. Improving. TSH/Cortisol normal.
Neutropenia/fever: Possibly from UTI. Resolved. Empirically treated with Cefepime changed to Keflex 500 4 times daily x 7 days until 08/14. Culture�no growth as of 08/13.
Underweight: Recommend dietary consult, supplements
Hypocalcemia: 8.1 from 7.3
Psych: Psychology consult.� Monitor mood, adjust medications as needed.�
Skin: monitor for pressure sores/rashes/lesions.�
Pain: acetaminophen as needed.�
Bowel: Colace and Senna, PRN bisacodyl.�
Bladder: Time void, PVRs, PRN straight cath.�
Metastatic prostate cancer:follows with oncology and on treatments.
GI Prophylaxis: may benefit from Pantoprazole�
DVT Prophylaxis: Mechanical and Lovenox
Pulmonary: Incentive spirometry�
Safety: Continue to reinforce assistance with all transfers.�
Code Status:� Full code�
Dispo�(date/plan/equipment needs): Home with family care.� Social history reviewed.�
Functional and Medical Goals:�Modified Independent with ADL�s, ambulation, transfers�
Discharge Destination:�Patient would benefit from acute inpatient rehabilitation for CVA associated with right-sided weakness, ADL and ambulatory dysfunction.
�
Attending Statement:
I saw and examined the patient today. Reviewed care plan with patient, therapy, nursing, and physician multimedia assistant. I agree with the above subjective and physical exam, and plan as documented by SOCORRO Lynn with adjustments made as necessary. A
total of 60minutes were spent with the patient preparing for the evaluation, obtaining history, performing examination and evaluation, counseling, data review, case management, care coordination, security orderly, and EMR documentation.
Thank you for allowing me to care for your patient. Please contact me with any questions or concerns.
Consultation
-
Date/Time Consultation Performed: 08/13/25
Requesting Provider: Dr. Mary Rey
Performing Provider: Dr. Navi Castillo
Reason for Consultation: Stroke
--- NOTE | 2025-08-13 15:41 | CM ---
Patient now asking for Acute Rehab and pending PM&R assessment, and SNF referral put on back burner untill assessed by PM&R. CM sent tt to physician and they are planning on assessing patient. CM will continue to follow for discharge planning needs.
Plan; Acute Rehab; pending PM&R assessment
[2025-08-13] MEDS: LOVENOX 40 MG SC (17:07)
[2025-08-13] MEDS: NORCO 5/325 2 TABLET PO (21:30)
[2025-08-14 03:02] VITALS: BP 123/61
[2025-08-14 07:40] VITALS: BP 120/63
[2025-08-14] MEDS: ZESTRIL 10 MG PO (07:46)
[2025-08-14] MEDS: LOW STRENGTH ASPIRIN 81 MG PO (07:46)
[2025-08-14] MEDS: DELTASONE 5 MG PO ×2 (07:46→20:53)
[2025-08-14] MEDS: KEFLEX 500 MG PO ×4 (07:46→20:54)
[2025-08-14 08:33] LABS: Hematocrit 24.7 % (39.0-52.0); Hemoglobin 8.0 g/dL (13.0-18.0); Mean Corp Hgb Conc. 32.4 g/dL (33.0-37.0); Mean Corpuscular Volume 89.2 fL (80.0-94.0); Platelet Count 324 10^3/uL (130-400); Red Cell Dist. Width 16.0 % (11.5-14.5)
[2025-08-14 09:03] LABS: Blood Urea Nitrogen 16 mg/dl (9-20); Calcium 8.2 mg/dl (8.4-10.2); Carbon Dioxide 25 mmol/L (22-30); Chloride 106 mmol/L (98-107); Estimated Creatinine Clearance 71 ml/min; Glucose 81 mg/dl (70-99); Potassium 4.1 mmol/L (3.5-5.1); Sodium 132 mmol/L (135-145); eGFR > 60.00
--- NOTE | 2025-08-14 13:03 | CM ---
CM reviewed chart, patient seen bedside.
PMR consulted, recommending acute rehab- updated referral sent to [facility].
Patient aware [facility] will review on Saturday, no one in over weekend.
Will require insurance auth if [facility] able to accept.
CM will continue to follow for all d/c needs.
Plan; referral to [facility], will need auth pending bed availability at [facility]
--- NOTE | 2025-08-14 13:30 | W.PN.HOSP.TC ---
Today's Communication/Plan
-
Continue with current treatments
Ongoing disposition efforts
Assessment / Plan
Assessment / Plan
IMPRESSION:
89-year-old male with past medical history significant for metastatic prostate cancer who presents to the emergency department with left leg pain and was found to be febrile. He has a ANC less than 700 criteria for neutropenic fever. On docetaxel.
The source of the fever is currently undetermined. Chest x-ray is clear. COVID flu is negative. UA still pending. Patient had no urinary symptoms. He is currently hemodynamically stable in no acute distress. However given unknown duration of
neutropenia patient will be admitted and started on empirically on antibiotics for neutropenic fever delineation of source.
Assessment:
Neutropenic fever - UTI as likely source. SIRS w/o sepsis
- Resolved fever. Normalized neutrophils.
- Blood cultures neg so far
- UA positive, urine cultures shows Klebsiella pneumonia
- Antibiotics switched to oral cephalexin per ID through 08/14
Chronic anemia
- normocytic-stable H&H from recent. Aim to keep hemoglobin more than 7.
HTN - stable
- continue lisinopril with hold parameters
Right leg weakness, acute on chronic
Acute CVA
- MRI: 7 mm ACUTE ISCHEMIC INFARCT in the superior cortical martins matter of the left frontal lobe. 3.6 mm ACUTE ISCHEMIC INFARCT in the cortical martins matter of the posterior left parietal lobe.
- continue tele monitoring
- Echo: Normal left ventricular size, wall thickness and systolic function. No regional wall motion abnormalities are seen. Ejection fraction is 56% by Stark's method of discs. Right ventricular size and systolic function are within normal limits.
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 Mild tricuspid regurgitation. Estimated pulmonary artery pressure of 21 mmHg assuming a right atrial pressure of 3 mmHg. Compared to a prior transthoracic echocardiogram study from 02/16/2016 no significant changes
are seen.
- continue ASA/Statin per Dr. Rg Neurology
- NeuroSx remotely evaluated MRI findings and stated no role for intervention for Moderate C spine cord compression C5-C6 (patient with chronic RLE weakness)
- PT/OT - acute rehab recommended. PMR eval and placement pending.
Metastatic prostate cancer
- follows with oncology and on treatments.
Hyponatremia
- clinically euvolemic. Urine lytes suggest excessive ADH. Fluid restriction for now and follow. Improving. TSH/Cortisol normal.
Underweight
DVT ppx: Lovenox
Code: Full
Anticipated Discharge: 24 - 48 hours
Subjective/Interval History
-
Date of Service: August 14, 2025
Feels the right lower extremities weakness has improved a bit. No new neurological symptom.
No fever chills.
Objective Data
-
Labs:
Laboratory Results
08/14/25
07:56
WBC 8.9
Hgb 8.0 L
Hct 24.7 L
Plt Count 324
Sodium 132 L
Potassium 4.1
Chloride 106
Carbon Dioxide 25
BUN 16
Creatinine 0.5 L
Glucose 81
Calcium 8.2 L
Vital Signs:
Vital Signs
Temp Pulse Resp BP Pulse Ox
97.7 F 82 14 120/63 100
08/14/25 07:40 08/14/25 07:40 08/14/25 07:40 08/14/25 07:40 08/14/25 07:40
I&O
08/13/25 08/14/25 08/15/25
06:59 06:59 06:59
Intake Total 240 / 240 240 / 240
Output Total 900 / 900 800 / 800
Balance -660 / -660 -560 / -560
Physical Exam
-
General: Comfortable
Respiratory: Non Labored Respirations; Negative Accessory Resp Muscle Use
Cardiac: Regular Rhythm and S1/S2; Negative Tachycardic
Neuro: AO x 3; Negative No Motor Deficits (Right lower extremity 4/5 today)
Psych: Calm; Negative Confused
Data Reviewed
-
Labs: Labs Reviewed by me
[2025-08-14] MEDS: LOVENOX 40 MG SC (17:04)
[2025-08-14] MEDS: OSCAL 500 + D 500 MG PO (20:53)
[2025-08-14] MEDS: OCUVITE SOFTGEL 1 CAP PO (20:53)
[2025-08-14] MEDS: NORCO 5/325 2 TABLET PO (22:21)
[2025-08-14 22:32] VITALS: BP 143/62
[2025-08-15 07:20] VITALS: BP 138/58
[2025-08-15 08:53] LABS: Blood Urea Nitrogen 14 mg/dl (9-20); Calcium 8.5 mg/dl (8.4-10.2); Carbon Dioxide 26 mmol/L (22-30); Chloride 104 mmol/L (98-107); Estimated Creatinine Clearance 71 ml/min; Glucose 87 mg/dl (70-99); Potassium 4.2 mmol/L (3.5-5.1); Sodium 133 mmol/L (135-145); eGFR > 60.00
[2025-08-15 09:22] LABS: Hematocrit 24.5 % (39.0-52.0); Hemoglobin 8.2 g/dL (13.0-18.0); Mean Corp Hgb Conc. 33.5 g/dL (33.0-37.0); Mean Corpuscular Volume 89.4 fL (80.0-94.0); Platelet Count 357 10^3/uL (130-400); Red Cell Dist. Width 16.5 % (11.5-14.5)
[2025-08-15] MEDS: OSCAL 500 + D 500 MG PO ×2 (09:53→21:15)
[2025-08-15] MEDS: KEFLEX 500 MG PO ×4 (09:53→21:15)
[2025-08-15] MEDS: LOW STRENGTH ASPIRIN 81 MG PO (09:53)
[2025-08-15] MEDS: DELTASONE 5 MG PO ×2 (09:53→21:16)
[2025-08-15] MEDS: OCUVITE SOFTGEL 1 CAP PO ×2 (09:53→21:15)
[2025-08-15] MEDS: ZESTRIL 10 MG PO (09:53)
--- NOTE | 2025-08-15 11:54 | W.PN.HOSP.TC ---
Today's Communication/Plan
-
DC further abx as planned prior
CW PT/OT
Ongoing dispo efforts
Assessment / Plan
Assessment / Plan
IMPRESSION:
89-year-old male with past medical history significant for metastatic prostate cancer who presents to the emergency department with left leg pain and was found to be febrile. He has a ANC less than 700 criteria for neutropenic fever. On docetaxel.
The source of the fever is currently undetermined. Chest x-ray is clear. COVID flu is negative. UA still pending. Patient had no urinary symptoms. He is currently hemodynamically stable in no acute distress. However given unknown duration of
neutropenia patient will be admitted and started on empirically on antibiotics for neutropenic fever delineation of source.
Assessment:
Neutropenic fever - UTI as likely source. SIRS w/o sepsis
- Resolved fever. Normalized neutrophils.
- Blood cultures neg so far
- UA positive, urine cultures shows Klebsiella pneumonia
- Antibiotics switched to oral cephalexin per ID through 08/14
Chronic anemia
- normocytic-stable H&H from recent. Aim to keep hemoglobin more than 7.
HTN - stable
- continue lisinopril with hold parameters
Right leg weakness, acute on chronic
Acute CVA
- MRI: 7 mm ACUTE ISCHEMIC INFARCT in the superior cortical martins matter of the left frontal lobe. 3.6 mm ACUTE ISCHEMIC INFARCT in the cortical martins matter of the posterior left parietal lobe.
- continue tele monitoring
- Echo: Normal left ventricular size, wall thickness and systolic function. No regional wall motion abnormalities are seen. Ejection fraction is 56% by Stark's method of discs. Right ventricular size and systolic function are within normal limits.
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 Mild tricuspid regurgitation. Estimated pulmonary artery pressure of 21 mmHg assuming a right atrial pressure of 3 mmHg. Compared to a prior transthoracic echocardiogram study from 02/16/2016 no significant changes
are seen.
- continue ASA/Statin per Dr. Rg Neurology
- NeuroSx remotely evaluated MRI findings and stated no role for intervention for Moderate C spine cord compression C5-C6 (patient with chronic RLE weakness)
- PT/OT - acute rehab recommended. PMR eval and placement pending.
Metastatic prostate cancer
- follows with oncology and on treatments.
Hyponatremia
- clinically euvolemic. Urine lytes suggest excessive ADH. Fluid restriction for now and follow. Improving. TSH/Cortisol normal.
Underweight
DVT ppx: Lovenox
Code: Full
Anticipated Discharge: Within 24 hours
Subjective/Interval History
-
Date of Service: August 15, 2025
No issues overnight. Feeling improved with regards to strength in the right lower extremity.
Objective Data
-
Labs:
Laboratory Results
08/15/25
08:18
WBC 9.2
Hgb 8.2 L
Hct 24.5 L
Plt Count 357
Sodium 133 L
Potassium 4.2
Chloride 104
Carbon Dioxide 26
BUN 14
Creatinine 0.5 L
Glucose 87
Calcium 8.5
Vital Signs:
Vital Signs
Temp Pulse Resp BP Pulse Ox
97.4 F 79 16 138/58 100
08/15/25 07:20 08/15/25 07:20 08/15/25 07:20 08/15/25 07:20 08/15/25 07:20
I&O
08/14/25 08/15/25 08/16/25
06:59 06:59 06:59
Intake Total 240 / 240 240 / 240
Output Total 800 / 800 200 / 200
Balance -560 / -560 40 / 40
Physical Exam
-
General: No Apparent Distress
Respiratory: Non Labored Respirations; Negative Accessory Resp Muscle Use
Cardiac: Regular Rhythm and S1/S2; Negative Tachycardic
Neuro: AO x 3; Negative No Motor Deficits (RLE - 4/5)
Psych: Calm; Negative Confused
Data Reviewed
-
Labs: Labs Reviewed by me
[2025-08-15 15:00] VITALS: BP 127/51
[2025-08-15] MEDS: LOVENOX 40 MG SC (17:07)
[2025-08-15 19:00] VITALS: BP 119/55
[2025-08-15] MEDS: NORCO 5/325 2 TABLET PO (22:09)
[2025-08-15 23:30] VITALS: BP 116/49
[2025-08-16 05:37] LABS: Hematocrit 22.4 % (39.0-52.0); Hemoglobin 7.6 g/dL (13.0-18.0); Mean Corp Hgb Conc. 33.9 g/dL (33.0-37.0); Mean Corpuscular Volume 88.5 fL (80.0-94.0); Platelet Count 342 10^3/uL (130-400); Red Cell Dist. Width 16.7 % (11.5-14.5)
[2025-08-16 06:05] LABS: Blood Urea Nitrogen 17 mg/dl (9-20); Calcium 8.8 mg/dl (8.4-10.2); Carbon Dioxide 25 mmol/L (22-30); Chloride 104 mmol/L (98-107); Estimated Creatinine Clearance 71 ml/min; Glucose 100 mg/dl (70-99); Potassium 4.5 mmol/L (3.5-5.1); Sodium 130 mmol/L (135-145); eGFR > 60.00
[2025-08-16 07:36] VITALS: BP 136/67
[2025-08-16] MEDS: DELTASONE 5 MG PO ×2 (09:36→20:20)
[2025-08-16] MEDS: ZESTRIL 10 MG PO (09:37)
[2025-08-16] MEDS: OSCAL 500 + D 500 MG PO ×2 (09:37→20:20)
[2025-08-16] MEDS: OCUVITE SOFTGEL 1 CAP PO ×2 (09:37→20:20)
[2025-08-16] MEDS: LOW STRENGTH ASPIRIN 81 MG PO (09:37)
[2025-08-16] MEDS: KEFLEX 500 MG PO (09:37)
--- NOTE | 2025-08-16 09:56 | W.PN.ONC2 ---
Today's Communication / Plan
-
Due for Eligard 22.5mg every 3 months, ideal to receive prior to discharge, if unable to receive prior to discharge then will administer in OP follow up upon return home from SNF/rehab
Discharge planning
Impression
Impression
89-year-old male with metastatic prostate cancer, on docetaxel and Eligard, xgeva- admitted for neutropenic fever (101.7 F, ANC 700)
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
neutropenia and fevers have resolved
kleb pneumoniae UTI, Bcx NTD
CVA
hyponatremia
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
SEVERE DIFFUSE ESOPHAGITIS
Moderate inflammatory interstitial pneumonitis
Plan
Plan
abx per primary service
stroke management per neuro
antineoplastic therapy will remain on hold while pt is at Rehab to optimize performance status
Patient to follow up with Dr. Kelly at [facility] after discharge.
Subjective/Objective
Subjective
no new complaints
afebrile, no hypoxia or hypotension
using hydrocodone/APAP for pain
Vital Signs:
Vital Signs
Temp Pulse Resp BP Pulse Ox
98.2 F 90 17 136/67 99
08/16/25 07:36 08/16/25 07:36 08/16/25 07:36 08/16/25 07:36 08/16/25 07:36
Lab Results:
Laboratory Data
WBC 9.9 10^3/uL (4.8-10.8) 08/16/25 05:06
Hgb 7.6 g/dL (13.0-18.0) L 08/16/25 05:06
Plt Count 342 10^3/uL (130-400) 08/16/25 05:06
eGFR > 60.00 08/16/25 05:06
Physical Exam
HEENT: Moist Mucous Membranes; No Jaundice
Pulmonary: Other (unlabored)
GI: Soft
Extremities: Pulses Present
--- NOTE | 2025-08-16 11:16 | W.PN.ID1 ---
Date of Service
Date of Service: August 16, 2025
Today's Communication
- completed course of keflex and stopped
ID service will no longer actively follow this patient please recall for further questions
Assessment / Plan
UTI
Right thigh pain and weakness
Stroke
- completed course of keflex and stopped
ID service will no longer actively follow this patient please recall for further questions
Chief Complaint
-: Fever
Subjective / Review of Systems
afebrile
bp stable
Vital Signs / Physical Exam
Vital Signs
Vital Signs
Temp Pulse Resp BP Pulse Ox
98.2 F 90 17 136/67 99
08/16/25 07:36 08/16/25 07:36 08/16/25 07:36 08/16/25 07:36 08/16/25 07:36
Physical Exam
Constitutional: No Acute Distress
Cardiovascular: Regular Rate and S1/S2; Negative Murmur or Rub
Pulmonary: Clear and Symmetric; Negative Wheezes or Rales
Gastrointestinal: Soft, Non Tender, Non Distended and Normal Bowel Sounds
Skin: Warm and Dry; Negative Rash or Jaundice
Objective Data
Lab Data
Lab Results
08/16/25 05:06
08/16/25 05:06
Estimated Creat Clear 71 ml/min 08/16/25 05:06
Lactic Acid Cancelled 08/09/25 00:15
Total Bilirubin 0.4 mg/dl (0.2-1.3) 08/08/25 21:53
AST 33 U/L (17-59) 08/08/25 21:53
ALT 21 U/L (0-50) 08/08/25 21:53
Alkaline Phosphatase 77 U/L (38-126) 08/08/25 21:53
Most recent labs reviewed.
Micro Results:
08/08/25 22:21 Blood Culture - Final
Blood/Venous No Growth - Final Report
08/08/25 22:21 Blood Culture - Final
Blood/Venous No Growth - Final Report
08/09/25 00:35 Urine Culture - Final
Urine Klebsiella pneumoniae
08/09/25 10:40 Urine Culture - Final
Urine NO GROWTH
08/08/25 20:18 Influenza Types A & B (SAYDA) - Final
Nasal Swab Negative for Influenza A & B, NAAT
Negative results must be combined with clinical observations
and patient history.
Nucleic Acid Amplification test (NAAT)performed on the
[employer] platform.
[2025-08-16 12:09] VITALS: PULSE 83; O2SAT 98
--- NOTE | 2025-08-16 13:56 | W.PN.HOSP.TC ---
Today's Communication/Plan
-
await [facility] dispo
Assessment / Plan
Assessment / Plan
IMPRESSION:
89-year-old male with past medical history significant for metastatic prostate cancer who presents to the emergency department with left leg pain and was found to be febrile. He has a ANC less than 700 criteria for neutropenic fever. On docetaxel.
The source of the fever is currently undetermined. Chest x-ray is clear. COVID flu is negative. UA still pending. Patient had no urinary symptoms. He is currently hemodynamically stable in no acute distress. However given unknown duration of
neutropenia patient will be admitted and started on empirically on antibiotics for neutropenic fever delineation of source.
Assessment:
Neutropenic fever - UTI as likely source. SIRS w/o sepsis
- Resolved fever. Normalized neutrophils.
- Blood cultures neg so far
- UA positive, urine cultures shows Klebsiella pneumonia
- completed cephalexin course
Chronic anemia
- normocytic-stable H&H from recent. Aim to keep hemoglobin more than 7.
HTN - stable
- continue lisinopril with hold parameters
Right leg weakness, acute on chronic
Acute CVA
- MRI: 7 mm ACUTE ISCHEMIC INFARCT in the superior cortical martins matter of the left frontal lobe. 3.6 mm ACUTE ISCHEMIC INFARCT in the cortical martins matter of the posterior left parietal lobe.
- continue tele monitoring
- Echo: Normal left ventricular size, wall thickness and systolic function. No regional wall motion abnormalities are seen. Ejection fraction is 56% by Stark's method of discs. Right ventricular size and systolic function are within normal limits.
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 Mild tricuspid regurgitation. Estimated pulmonary artery pressure of 21 mmHg assuming a right atrial pressure of 3 mmHg. Compared to a prior transthoracic echocardiogram study from 02/16/2016 no significant changes
are seen.
- continue ASA/Statin per Dr. Rg Neurology
- NeuroSx remotely evaluated MRI findings and stated no role for intervention for Moderate C spine cord compression C5-C6 (patient with chronic RLE weakness)
- PT/OT - acute rehab recommended. PMR eval appreciated. Awaiting bed/placement.
Metastatic prostate cancer
- follows with oncology and on treatments.
- Due for Elicarmend after SNF
Hyponatremia
- clinically euvolemic. Urine lytes suggest excessive ADH. Fluid restriction for now and follow. Improving. TSH/Cortisol normal.
Underweight
DVT ppx: Lovenox
Code: Full
Anticipated Discharge: Within 24 hours
Subjective/Interval History
-
Date of Service: August 16, 2025
resting comfortably
no bed at [place] today
Objective Data
-
Labs:
Laboratory Results
08/16/25
05:06
WBC 9.9
Hgb 7.6 L
Hct 22.4 L
Plt Count 342
Sodium 130 L
Potassium 4.5
Chloride 104
Carbon Dioxide 25
BUN 17
Creatinine 0.6 L
Glucose 100 H
Calcium 8.8
Vital Signs:
Vital Signs
Temp Pulse Resp BP Pulse Ox
98.2 F 90 17 136/67 99
08/16/25 07:36 08/16/25 07:36 08/16/25 07:36 08/16/25 07:36 08/16/25 07:36
I&O
08/15/25 08/16/25 08/17/25
06:59 06:59 06:59
Intake Total 240 / 240 300 / 300
Output Total 200 / 200 775 / 775
Balance 40 / 40 -475 / -475
Physical Exam
-
General: No Apparent Distress
HEENT: Normocephalic and Atraumatic
Respiratory: Clear to Auscultation; Negative Wheezes
Cardiac: Regular Rhythm and S1/S2
GI: Soft
Neuro: AO x 3 and Other (RLE - 4/5)
Psych: Calm
Data Reviewed
-
Total Time Spent with Patient (in minutes): 42
Labs: Labs Reviewed by me
[2025-08-16 15:20] VITALS: BP 131/69; PULSE 93; O2SAT 99
[2025-08-16 15:33] VITALS: BP 131/69
--- NOTE | 2025-08-16 16:03 | CM ---
Spoke with Ana Maria at [facility] bed available tomorrow.
Requested PT and updated OT evals for auth.
[facility]
Dr Spangler [id number]
Will need auth [facility]
PLAN To [facility] after auth
[2025-08-16] MEDS: LOVENOX 40 MG SC (17:36)
[2025-08-16] MEDS: NORCO 5/325 2 TABLET PO (22:09)
[2025-08-16 23:00] VITALS: BP 129/67
[2025-08-17 05:42] LABS: Hematocrit 21.9 % (39.0-52.0); Hemoglobin 7.3 g/dL (13.0-18.0); Mean Corp Hgb Conc. 33.3 g/dL (33.0-37.0); Mean Corpuscular Volume 88.7 fL (80.0-94.0); Platelet Count 339 10^3/uL (130-400); Red Cell Dist. Width 16.8 % (11.5-14.5)
[2025-08-17 05:53] LABS: Blood Urea Nitrogen 16 mg/dl (9-20); Calcium 8.5 mg/dl (8.4-10.2); Carbon Dioxide 27 mmol/L (22-30); Chloride 103 mmol/L (98-107); Estimated Creatinine Clearance 71 ml/min; Glucose 100 mg/dl (70-99); Potassium 4.6 mmol/L (3.5-5.1); Sodium 131 mmol/L (135-145); eGFR > 60.00
[2025-08-17 07:41] VITALS: BP 124/59
[2025-08-17] MEDS: OSCAL 500 + D 500 MG PO ×2 (07:54→19:39)
[2025-08-17] MEDS: OCUVITE SOFTGEL 1 CAP PO ×2 (07:54→19:39)
[2025-08-17] MEDS: ZESTRIL 10 MG PO (07:54)
[2025-08-17] MEDS: DELTASONE 5 MG PO ×2 (07:54→19:39)
[2025-08-17] MEDS: LOW STRENGTH ASPIRIN 81 MG PO (07:54)
--- NOTE | 2025-08-17 09:44 | W.PN.HOSP.TC ---
Today's Communication/Plan
-
1 unit PRBC today per Hematology for Hb 7.3; then dc to [place] if bed avail
Assessment / Plan
Assessment / Plan
IMPRESSION:
89-year-old male with past medical history significant for metastatic prostate cancer who presents to the emergency department with left leg pain and was found to be febrile. He has a ANC less than 700 criteria for neutropenic fever. On docetaxel.
The source of the fever is currently undetermined. Chest x-ray is clear. COVID flu is negative. UA still pending. Patient had no urinary symptoms. He is currently hemodynamically stable in no acute distress. However given unknown duration of
neutropenia patient will be admitted and started on empirically on antibiotics for neutropenic fever delineation of source.
Assessment:
Neutropenic fever - UTI as likely source. SIRS w/o sepsis
- Resolved fever. Normalized neutrophils.
- Blood cultures neg so far
- UA positive, urine cultures shows Klebsiella pneumonia
- completed cephalexin course
Chronic anemia
- normocytic
- 1 unit PRBC today per Hematology for Hb 7.3
HTN - stable
- continue lisinopril with hold parameters
Right leg weakness, acute on chronic
Acute CVA
- MRI: 7 mm ACUTE ISCHEMIC INFARCT in the superior cortical martins matter of the left frontal lobe. 3.6 mm ACUTE ISCHEMIC INFARCT in the cortical martins matter of the posterior left parietal lobe.
- continue tele monitoring
- Echo: Normal left ventricular size, wall thickness and systolic function. No regional wall motion abnormalities are seen. Ejection fraction is 56% by Stark's method of discs. Right ventricular size and systolic function are within normal limits.
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 Mild tricuspid regurgitation. Estimated pulmonary artery pressure of 21 mmHg assuming a right atrial pressure of 3 mmHg. Compared to a prior transthoracic echocardiogram study from 02/16/2016 no significant changes
are seen.
- continue ASA/Statin per Dr. Rg Neurology
- NeuroSx remotely evaluated MRI findings and stated no role for intervention for Moderate C spine cord compression C5-C6 (patient with chronic RLE weakness)
- PT/OT - acute rehab recommended. PMR leon appreciated. Awaiting bed/placement.
Metastatic prostate cancer
- follows with oncology and on treatments.
- Due for Slim after SNF
Hyponatremia
- clinically euvolemic. Urine lytes suggest excessive ADH. Fluid restriction for now and follow. Improving. TSH/Cortisol normal.
Underweight
DVT ppx: Lovenox
Code: Full
Dispo: Medically stable for DC to [facility] if bed available today. will D/w CM
Anticipated Discharge: Today
Subjective/Interval History
-
Date of Service: August 17, 2025
resting comfortably, no complaints at present
Objective Data
-
Labs:
Laboratory Results
08/17/25
04:53
WBC 8.8
Hgb 7.3 L
Hct 21.9 L
Plt Count 339
Sodium 131 L
Potassium 4.6
Chloride 103
Carbon Dioxide 27
BUN 16
Creatinine 0.5 L
Glucose 100 H
Calcium 8.5
Vital Signs:
Vital Signs
Temp Pulse Resp BP Pulse Ox
97.8 F 80 20 124/59 98
08/17/25 07:41 08/17/25 07:41 08/17/25 07:41 08/17/25 07:41 08/17/25 07:50
I&O
08/16/25 08/17/25 08/18/25
06:59 06:59 06:59
Intake Total 300 / 300 420 / 420
Output Total 775 / 775 1175 / 1175 420 / 420
Balance -475 / -475 -755 / -755 -420 / -420
Physical Exam
-
General: No Apparent Distress
HEENT: Normocephalic and Atraumatic
Respiratory: Negative Wheezes
Cardiac: Regular Rhythm and S1/S2
GI: Soft
Genito-urinary: No Costovertebral Tender
Neuro: AO x 3
Psych: Calm
Data Reviewed
-
Total Time Spent with Patient (in minutes): 41
Labs: Labs Reviewed by me
--- NOTE | 2025-08-17 09:52 | CM ---
Addendum entered by Emerald Cohen 08/17/25 11:54:
Patient seen bedside, aware of d.c plan for today.
IMM verbally reviewed, provided with copy, placed in chart.
Plan; [facility]
Addendum entered by Emerald Cohen 08/17/25 09:52:
To [facility], 08/17-08/23, next review date 08/23, auth #[id number], call for updates [phone]. Updates to Hospitalist, updates to liaison at [facility].
[facility]
Report: [phone]

Original Note:
Auth approved via [facility]-
--- NOTE | 2025-08-17 11:50 | W.PN.ONC ---
Today's Communication / Plan
-
for one unit prbcs today, [facility]
antineoplastic therapy will remain on hold while pt is at Rehab to optimize performance status
Patient to follow up with Dr. Kelly at [place] after discharge.
Impression
Impression
89-year-old male with metastatic prostate cancer, on docetaxel and Eligard, xgeva- admitted for neutropenic fever (101.7 F, ANC 700)
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
neutropenia and fevers have resolved
kleb pneumoniae UTI, Bcx NTD
CVA
hyponatremia
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
SEVERE DIFFUSE ESOPHAGITIS
Moderate inflammatory interstitial pneumonitis
Plan
Plan
for one unit prbcs today, [facility]
antineoplastic therapy will remain on hold while pt is at Rehab to optimize performance status
Patient to follow up with Dr. Kelly at [place] after discharge.
Subjective/Objective
Subjective/Objective
no new issues, eager to get to rehab
Vital Signs:
Vital Signs
Temp Pulse Resp BP Pulse Ox
97.8 F 80 20 124/59 98
08/17/25 07:41 08/17/25 07:41 08/17/25 07:41 08/17/25 07:41 08/17/25 07:50
Lab Results:
Laboratory Data
WBC 8.8 10^3/uL (4.8-10.8) 08/17/25 04:53
Hgb 7.3 g/dL (13.0-18.0) L 08/17/25 04:53
Plt Count 339 10^3/uL (130-400) 08/17/25 04:53
eGFR > 60.00 08/17/25 04:53
[2025-08-17 12:30] VITALS: BP 109/66
[2025-08-17 12:50] VITALS: BP 125/52
[2025-08-17 15:07] VITALS: BP 128/50
[2025-08-17 15:24] VITALS: BP 140/64
[2025-08-17] MEDS: LOVENOX 40 MG SC (15:51)
[2025-08-17 16:40] LABS: Hematocrit 28.5 % (39.0-52.0); Hemoglobin 9.1 g/dL (13.0-18.0)
[2025-08-17] MEDS: NORCO 5/325 2 TABLET PO (22:09)
[2025-08-17 23:09] VITALS: BP 131/72
--- NOTE | 2025-08-18 02:28 | DOWNTIME ---
There was a [facility] [employer] Downtime on 08/18/2025 from 0100 to 08/18/2025 at 0215. Downtime documentation of patient's care, including medication administrations, has been reconciled in the electronic record per guidelines. Refer to the
patient's paper chart under the miscellaneous tab to see printed paper medication records and downtime forms.
[2025-08-18 05:34] LABS: Hematocrit 27.4 % (39.0-52.0); Hemoglobin 9.0 g/dL (13.0-18.0); Mean Corp Hgb Conc. 32.8 g/dL (33.0-37.0); Mean Corpuscular Volume 86.7 fL (80.0-94.0); Platelet Count 374 10^3/uL (130-400); Red Cell Dist. Width 17.2 % (11.5-14.5)
[2025-08-18 07:40] VITALS: BP 131/71
[2025-08-18] MEDS: ZESTRIL 10 MG PO (08:21)
[2025-08-18] MEDS: LOW STRENGTH ASPIRIN 81 MG PO (08:21)
[2025-08-18] MEDS: DELTASONE 5 MG PO (08:21)
[2025-08-18] MEDS: OSCAL 500 + D 500 MG PO (08:21)
[2025-08-18] MEDS: OCUVITE SOFTGEL 1 CAP PO (08:21)
--- NOTE | 2025-08-18 09:06 | CM ---
SILVIA reviewed chart, confirmed with [facility]- able to accept patient today.
Auth approved to [facility], 08/17-08/23, next review date 08/23, auth #[id number], call for updates [phone].
[facility]
Report: [phone]
[2025-08-18 13:57] VITALS: BP 139/61
--- NOTE | 2025-08-18 14:01 | W.PN.HOSP.TC ---
Today's Communication/Plan
-
dc to [facility] today
Assessment / Plan
Assessment / Plan
IMPRESSION:
89-year-old male with past medical history significant for metastatic prostate cancer who presents to the emergency department with left leg pain and was found to be febrile. He has a ANC less than 700 criteria for neutropenic fever. On docetaxel.
The source of the fever is currently undetermined. Chest x-ray is clear. COVID flu is negative. UA still pending. Patient had no urinary symptoms. He is currently hemodynamically stable in no acute distress. However given unknown duration of
neutropenia patient will be admitted and started on empirically on antibiotics for neutropenic fever delineation of source.
Assessment:
Neutropenic fever - UTI as likely source. SIRS w/o sepsis
- Resolved fever. Normalized neutrophils.
- Blood cultures neg so far
- UA positive, urine cultures shows Klebsiella pneumonia
- completed cephalexin course
Chronic anemia
- normocytic
- s/p 1 unit PRBC; Hb 9.0 today
HTN - stable
- continue lisinopril with hold parameters
Right leg weakness, acute on chronic
Acute CVA
- MRI: 7 mm ACUTE ISCHEMIC INFARCT in the superior cortical martins matter of the left frontal lobe. 3.6 mm ACUTE ISCHEMIC INFARCT in the cortical martins matter of the posterior left parietal lobe.
- continue tele monitoring
- Echo: Normal left ventricular size, wall thickness and systolic function. No regional wall motion abnormalities are seen. Ejection fraction is 56% by Stark's method of discs. Right ventricular size and systolic function are within normal limits.
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 Mild tricuspid regurgitation. Estimated pulmonary artery pressure of 21 mmHg assuming a right atrial pressure of 3 mmHg. Compared to a prior transthoracic echocardiogram study from 02/16/2016 no significant changes
are seen.
- continue ASA/Statin per Dr. Rg Neurology
- NeuroSx remotely evaluated MRI findings and stated no role for intervention for Moderate C spine cord compression C5-C6 (patient with chronic RLE weakness)
- PT/OT - acute rehab recommended. PMR eval appreciated. Awaiting bed/placement.
Metastatic prostate cancer
- follows with oncology and on treatments.
- Due for Elicarmend after SNF
Hyponatremia
- clinically euvolemic. Urine lytes suggest excessive ADH. Fluid restriction for now and follow. Improving. TSH/Cortisol normal.
Underweight
DVT ppx: Lovenox
Code: Full
Dispo: Medically stable for DC to [place] today
Anticipated Discharge: Today
Subjective/Interval History
-
Date of Service: August 18, 2025
resting comfortably, no complaints
Objective Data
-
Labs:
Laboratory Results
08/18/25
05:16
WBC 10.1
Hgb 9.0 L
Hct 27.4 L
Plt Count 374
Vital Signs:
Vital Signs
Temp Pulse Resp BP Pulse Ox
98.1 F 94 18 139/61 99
08/18/25 13:57 08/18/25 13:57 08/18/25 13:57 08/18/25 13:57 08/18/25 13:57
I&O
08/17/25 08/18/25 08/19/25
06:59 06:59 06:59
Intake Total 420 / 420 250 / 250
Output Total 1175 / 1175 570 / 570
Balance -755 / -755 -320 / -320
Physical Exam
-
General: No Apparent Distress
HEENT: Normocephalic and Atraumatic
Respiratory: Negative Wheezes
Cardiac: Regular Rhythm and S1/S2
GI: Soft and Nontender
Musculoskeletal: No Edema
Neuro: AO x 3
Psych: Calm
Data Reviewed
-
Total Time Spent with Patient (in minutes): 41
Labs: Labs Reviewed by me
--- NOTE | 2025-08-18 14:02 | W.DCSUMMARY ---
Discharge Summary
Discharge Data
Date of Admission: 08/09/25
Date of Discharge: 08/18/25
-
Pending Results: No
Hospital Course
89 y/o M with hx of metastatic prostate cancer, HTN, chronic anemia presented to ER on 08/09 with neutropenic fever and was found to have Klebsiella UTI treated with oral antibiotics (completed Cephalexin course as outlined by ID). Patient also have
acute on chronic RLE weakness and was found on MRI to have acute CVAs in L frontal and L parietal lobe. He was evaluated by Neurology and placed on ASA and statin. He was recommended for acute rehab and placed on 08/17/25 to [facility]. Of note, he has
chronic anemia and hematology recommended 1 unit of blood which was given prior to discharge.
Discharge Plan
-
Patient Disposition: Acute Rehab Facility
Discharge Diagnosis/Procedures: Neutropenic fever/UTI completed antibiotics. Anemia requiring 1 unit blood. Acute L sided CVA with RLE weakness
Condition: Fair
Diet: Low Cholesterol
Activity: As tolerated
Other Services: PT and OT
Referrals:
Dariusz Clemente MD [[facility], [facility]] - in two to four weeks
UNKNOWN - PT DOES,NOT KNOW [Family Provider]
Prescriptions:
New
aspirin 81 mg Tablet,Chewable
81 mg PO DAILY Qty: 30 0RF
acetaminophen 325 mg Tablet
650 mg PO Q4HPRN PRN (Reason: mild pain/GREGORIO/temp> 100.4F) Qty: 60 0RF
sennosides-docusate sodium [Senna Plus] 8.6-50 mg Tablet
1 tab PO BIDPRN PRN (Reason: constipation) Qty: 60 0RF
prednisone 5 mg Tablet
5 mg PO BID Qty: 60 0RF
Continued
lisinopril 10 MG tablet
10 mg PO DAILY
multivitamin with folic acid [Tab-A-Elva] 1 TABLET tablet
1 tab PO DAILY
calcium carbonate-vitamin D3 600 mg-5 mcg (200 unit) Tablet
1 tab PO BID
degarelix 80 mg Recon Soln
80 mg SC QMONTH
PreserVision AREDS-2 250-90-40-1 mg Capsule
1 tab PO BID
hydrocodone-acetaminophen 5-325 mg tablet
2 tab PO Q6H PRN (Reason: Pain) Qty: 20 0RF
Patient Comments:
prn but usually takes only at hs
Discontinued
prednisone 5 mg Tablet
1 mg PO BID
Patient Comments:
takes at noon 7pm
Discharge Orders:
Discharge Patient (As Directed); Ordered 08/18/25
Ordered By: Mary Rey
Discharge Date and Time
Print Language: [place] ISLAND[place]
== END 2025-08-18 14:32 | DRG 808 ==
LOC: 4 WEST ACU 01:27
PROVIDERS: Emergency Medicine; Internal Medicine; ADMITTING PHYSICIAN Internal Medicine; ATTENDING PHYSICIAN Internal Medicine; CONSULT PHYSICIAN Physical Medicine & Rehabilitation; CONSULT PHYSICIAN Psychiatry & Neurology Neurology; EMERGENCY PHYSICIAN Student in an Organized Health Care Education/Training Program; OTHER PHYSICIAN Internal Medicine Hematology & Oncology; OTHER PHYSICIAN Student in an Organized Health Care Education/Training Program
PROC: 30243N1 Transfusion of Nonautologous Red Blood Cells into Central Vein, Percutaneous Approach (ICD-10-PCS; 2025-08-17)
DX: D70.9 Neutropenia, unspecified (principal); I63.9 Cerebral infarction, unspecified; N39.0 Urinary tract infection, site not specified; E87.1 Hypo-osmolality and hyponatremia; Z68.1 Body mass index [BMI] 19.9 or less, adult; D84.9 Immunodeficiency, unspecified; G81.91 Hemiplegia, unspecified affecting right dominant side; G95.20 Unspecified cord compression; R50.81 Fever presenting with conditions classified elsewhere; D64.9 Anemia, unspecified; Z11.52 Encounter for screening for COVID-19; Z85.038 Personal history of other malignant neoplasm of large intestine; Z85.46 Personal history of malignant neoplasm of prostate; Z85.830 Personal history of malignant neoplasm of bone; I10 Essential (primary) hypertension; R63.6 Underweight; B96.1 Klebsiella pneumoniae [K. pneumoniae] as the cause of diseases classified elsewhere; E78.5 Hyperlipidemia, unspecified; E83.51 Hypocalcemia; H35.30 Unspecified macular degeneration; H44.522 Atrophy of globe, left eye; H54.62 Unqualified visual loss, left eye, normal vision right eye; I25.10 Atherosclerotic heart disease of native coronary artery without angina pectoris; K21.9 Gastro-esophageal reflux disease without esophagitis; M47.819 Spondylosis without myelopathy or radiculopathy, site unspecified; Z79.899 Other long term (current) drug therapy; Z83.3 Family history of diabetes mellitus; Z90.79 Acquired absence of other genital organ(s); Z92.3 Personal history of irradiation
CPT/HCPCS: 70496; 70498; 70551; 71046; 72157; 72158; 73552; 73701; 80048; 80053; 80061; 81003; 81015; 82533; 82607; 82728; 82746; 83036; 83605; 83935; 84300; 84443; 85014; 85018; 85025; 85027; 86850; 86900; 86901; 86920; 87040; 87077; 87086; 87186; 87502; 87811; 93005; 93306; 93356; 97110; 97112; 97116; 97162; 97167; 97530; 97535; 99285; A9575; P9016; Q9967